=== PATIENT | male | born 1955 | race Caucasian/White ===

== ENCOUNTER 2017-03-10 06:16 | Outpatient (CLI) | payer BC ==
--- NOTE | ~2017-03-10 | HEMODYNAMI ---
PATIENT:KATELYNN BALDWIN MEDICAL RECORD: [id number] : 53 LOCATION:[facility] ADMISSION DATE: 03/10/17 Generatedon:03/10/20179:21 Patient name: KATELYNN BALDWIN Patient #: [id number] SSN: D OB: 1955 Date of study: 03/10/2017 Page: Of Hemodynamic Procedure Report Patient Data Patient Demographics Procedure consent was obtained First Name: KATELYNN Gender: Male Last Name: DENNY : 1955 Patient #: [id number] Age: 61 year(s) Race: Unknown Additional ID: [id number] Contact details Address: [address] [place] [address] State: [place] City: [facility] Zip code: [address] Admission Admission Data Admission Date: 03/10/2017 Admission Time: 6:16 Lab Results Lab Result Date: 03/10/2017 Lab Result Time: 0:00 Biochemistry Name Units Result Min Max BUN mg/dl 21 --(----)-* 7 18 Creatinine mg/dl 1.2 --(---*)-- 0.6 1.3 CBC Name Units Result Min Max Hemoglobin g/dl 15.6 --(--*-)-- 13.5 17.5 Procedure Procedure Types Cath Procedure Diagnostic Procedure [facility] w/Coronaries Miscellaneous Procedures Moderate Sedation up to 30 minutes Procedure Description Procedure Date Procedure Date: 03/10/2017 Procedure Start Time: 9:06 Procedure End Time: 9:18 Procedure Staff Name Function Dima Arias MD Performing Physician Phylicia Ortez RT Scrub Eric Bright RN Nurse Miguelina Hawley RT Monitor Procedure Data Cath Procedure Fluoroscopy Diagnostic fluoroscopy Total fluoroscopy Time: 1.6 time: 1.6 min min Diagnostic fluoroscopy Total fluoroscopy dose: 988 dose: 988 mGy mGy Contrast Material Contrast Material Type Amount (ml) Isovue 300 77 Entry Location Entry Primary Successful Side Size Upsize Upsize Entry Closure Christianson ccessful Closure Location (Fr) 1 (Fr) 2 (Fr) Remarks Device Remarks Radial Right 6 Fr Mechanical artery Short Compression Estimated blood loss: 5 ml Diagnostic catheters Device Type Used For End Catheter Placement Terumo 5Fr Roque 110cm Multi-vessel catheter Angiography Procedure Complications No complications Procedure Medications Medication Administration Route Dosage Oxygen NC 2 l/min Heparin Flush Bag added to field 2 bags (1000units/500ml NS) 0.9% NaCl I.V. 100 ml/hr Radial Cocktail added to field 1 syringe (Verapomil 2mg/Nitro 400mcg/Heparin 1500units) Fentanyl I.V. 50 mcg Versed I.V. 1 mg Radial Cocktail I.A. 1 syringe (Verapomil 2mg/Nitro 400mcg/Heparin 1500units) Fentanyl I.V. 50 mcg Versed I.V. 1 mg Hemodynamics Rest HGB: 15.6 (g/dl) Heart Rate: 74 (bpm) Pressure Samples Time Site Value (mmHg) Purpose Heart Use Rate(bpm) 9:09 LV 121/-7,6 Snapshot 77 Gradients Valve Time Site Site Mean SEP/DFP Peak To Heart Use 1 2 (mmHg) (sec/min) Peak Rate (mmHg) (bpm) Aortic 9:10 LV AO 84 Snapshots Pre Cath Intra NCS Post Cath Vital Signs Time Heart Resp SPO2 etCO2 NIBP (mmHg) Rhythm Pain Sedation Rate (ipm) (%) (mmHg) Status Level (bpm) 8:45:26 57 18 94 0 141/79(112) NSR 0 (11) 10(A) , No pain 8:49:48 58 28 96 29 138/72(98) NSR 0 (11) 10(A) , No pain 8:54:02 65 18 96 35 129/85(108) NSR 0 (11) 10(A) , No pain 8:58:16 68 16 97 34.3 124/87(107) NSR 0 (11) 10(A) , No pain 9:02:30 75 17 92 33.6 141/83(109) NSR 0 (11) 9(A) , No pain 9:06:50 71 17 92 14.1 127/79(106) NSR 0 (11) 9(A) , No pain 9:10:58 68 17 93 38.8 113/69(103) NSR 0 (11) 9(A) , No pain 9:15:10 74 16 92 38.8 122/77(97) NSR 0 (11) 9(A) , No pain 9:21:02 70 18 93 27.6 133/75(98) NSR 0 (11) 9(A) , No pain Medications Time Medication Route Dose Verified Delivered Reason Notes E ffectiveness by by 8:52:39 Oxygen NC 2 l/min Dima Eric Per Hugo Bright RN physician 8:52:48 Heparin Flush added 2 bags Dima Eric used for Bag to Hugo Bright RN procedure (1000units/500ml field NS) 8:52:57 0.9% NaCl I.V. 100 Dima Eric Per ml/hr Hugo Bright RN physician 8:53:07 Radial Cocktail added 1 Dima Eric used for (Verapomil to syringe Hugo Bright RN procedure 2mg/Nitro field 400mcg/Heparin 1500units) 9:00:58 Fentanyl I.V. 50 mcg Dima Eric for sedation Hugo Bright RN 9:01:06 Versed I.V. 1 mg Dima Eric for sedation Hugo Bright RN 9:09:05 Radial Cocktail I.A. 1 Dima Dima for (Verapomil syringe Hugo Arias MD vasodilation 2mg/Nitro 400mcg/Heparin 1500units) 9:09:36 Fentanyl I.V. 50 mcg Dima Eric for sedation Hugo Bright RN 9:09:38 Versed I.V. 1 mg Dima Eric for sedation Hugo Bright poultry picking machine tender Log Time Note 8:25:16 Plan of Care:Hemodynamics will remain stable., Cardiac rhythm will remain stable., Comfort level will be maintained., Respiratory function will remain adequate., Patient/ family verbilizes understanding of procedure., Procedure tolerated without complication., Recovers from procedure without complications.. 8:25:50 Phylicia Ortez RT(R) sent for patient. Start room use. 8:38:11 Time tracking: Regular hours 8:38:53 Patient received from Pre/Post Procedure Room to [facility] 2 Alert and oriented. Tansferred to table in Supine position. 8:38:54 Warm blankets applied, and shannan hugger turned on for patient comfort. 8:38:55 Correct patient and procedure confirmed by team. 8:38:56 Signed procedure consent form obtained from patient. 8:38:56 ECG and BP/O2 sat monitors applied to patient. 8:44:12 Vital chart was started 8:48:09 Baseline sample Acquired. 8:48:16 Rhythm: sinus rhythm 8:48:17 Full Disclosure recording started 8:48:29 H&P Date Dictated: 03/04/2017 Within 30 days and on chart., H&P Addendum completed by physician on day of procedure. (MUST COMPLETE FOR ALL OUTPATIENTS). 8:48:33 Pre-procedure instructions explained to patient. 8:48:33 Pre-op teaching completed and patient verbalized understanding. 8:48:34 Family in waiting room. 8:48:35 Patient NPO since Midnight. 8:48:45 Is the patient allergic to Iodine/contrast media? No. 8:48:46 Was the patient premedicated? No 8:48:47 Is patient on blood thinner?No 8:48:48 Patient diabetic? No. 8:48:51 Previous problem with sedation/anesthesia? No ? 8:48:54 Snore? Yes 8:48:55 Sleep apnea? Yes 8:48:56 Deviated septum? No 8:48:57 Opens mouth fully? Yes 8:48:57 Sticks out tongue? Yes 8:48:59 Airway obstruction? No ? 8:49:02 Dentures? No ? 8:50:00 Pre procedure: right dorsailis pedis pulse 2+ Normal; easily identifiable; not easily obliterated 8:50:03 Pre procedure: left dorsailis pedis pulse 2+ Normal; easily identifiable; not easily obliterated 8:50:06 Patient pain scale 0/10 ?. 8:50:15 IV patent on arrival in left forearm with 0.9% NaCl at [facility]. 8:52:04 Lab Result : Creatinine 1.2 mg/dl 8:52:04 Lab Result : BUN 21 mg/dl 8:52:04 Lab Result : Hemoglobin 15.6 g/dl 8:52:07 Lab results completed and on chart. 8:52:15 Right Radial & Right Groin area was prepped with chlora-prep and draped in sterile fashion 8:52:15 Alarms reviewed by RGabe NGabe 8:52:16 Sharps counted by scrub and verified by R.N. 8:52:39 Oxygen 2 l/min NC was administered by Eric Bright RN; Per physician; 8:52:48 Heparin Flush Bag (1000units/500ml NS) 2 bags added to field was administered by Eric Bright RN; used for procedure; 8:52:57 0.9% NaCl 100 ml/hr I.V. was administered by Eric Bright RN; Per physician; 8:53:07 Radial Cocktail (Verapomil 2mg/Nitro 400mcg/Heparin 1500units) 1 syringe added to field was administered by Eric Bright RN; used for procedure; 8:58:37 Physician arrived 8:58:38 --------ALL STOP TIME OUT------ 8:58:39 Final Timeout: patient, procedure, and site verified with staff and physician. All members of the team are in agreement. 8:58:53 Right Radial & Right Groin site verified by team. 8:58:55 Physical assessment completed. ASA score P 2 - A patient with mild systemic disease as per Dima Arias MD. 8:58:59 Sedation plan: IV Moderate Sedation Versed, Fentanyl 8:59:01 Zero performed for pressure channel P1 8:59:07 Zero performed for pressure channel P1 8:59:25 Use device set Radial Dx 8:59:26 Acist Syringe opened to sterile field. 8:59:26 Medline Cath Pack opened to sterile field. 8:59:27 Bag Decanter opened to sterile field. 8:59:27 Terumo 6Fr Slender Glidesheath opened to sterile field. 8:59:27 St Glenn 260cm J .035 wire opened to sterile field. 8:59:28 Acist Hand Control opened to sterile field. 8:59:28 Acist Manifold opened to sterile field. 8:59:29 Tegaderm 4 x 4 opened to sterile field. 8:59:29 MBrace Wrist Support opened to sterile field. 9:00:58 Fentanyl 50 mcg I.V. was administered by Eric Bright RN; for sedation; 9:01:06 Versed 1 mg I.V. was administered by Eric Bright RN; for sedation; 9:06:41 Procedure started. 9:06:46 Local anesthetic to right radial artery with Lidocaine 2% by Dima Arias MD.INITIAL ACCESS ONLY 9:07:59 A 6 Fr Short sheath was inserted into the Right Radial artery 9:08:58 A Terumo 5Fr Roque 110cm catheter was advanced over the wire and used for Multi-vessel Angiography. 9:09:05 Radial Cocktail (Verapomil 2mg/Nitro 400mcg/Heparin 1500units) 1 syringe I.A. was administered by Dima Arias MD; for vasodilation; 9::36 Fentanyl 50 mcg I.V. was administered by Eric Bright RN; for sedation; 9::38 Versed 1 mg I.V. was administered by Eric Bright RN; for sedation; 9::38 LV hemodynamics recorded. 9:09:39 LV gram done using MORILLO 9:09:41 Injector settings: Ml/sec: 5, Volume: 15, 9:09:53 EF : 50 % 9:10:43 RCA angiography performed. 9:10:46 Injector settings: Ml/sec: 3, Volume: 6, 9:13:20 LCA angiography performed. 9:13:24 Injector settings: Ml/sec: 3, Volume: 6, 9:15:22 Catheter removed. 9:16:02 Terumo TR Band Large opened to sterile field. 9:16:19 Sheath removed intact; hemostasis achieved with Mechanical Compression to the Right Radial artery. 9:16:21 Procedure ended.(Physican Out) 9:16:40 Fluoroscopy time 01.60 minutes. 9:16:44 Flurop Dose total: 988 9:16:44 Fluoroscopy dose: 988 mGy 9:16:51 Contrast amount:Isovue 300 77ml. 9:16:53 Sharps counted by scrub and verified by R.N. 9:16:55 TR band inflated with 10cc of air. 9:16:57 Insertion/operative site no bleeding no hematoma. 9:17:00 Post right radial artery:stable 9:17:36 Post Procedure Pulses reassessed and unchanged 9:17:38 Post procedure rhythm: unchanged. 9:17:41 Estimated blood loss: 5 ml 9:17:42 Post procedure instruction explained to patient.Patient verbalizes understanding. 9:17:43 Patient needs reinforcement of post procedure teaching. 9:18:00 Procedure type changed to Cath procedure, Diagnostic procedure, LHC, LHC w/Coronaries, Miscellaneous Procedures, Moderate Sedation up to 30 minutes 9:18:05 Procedure and supply charges have been captured, reviewed, submitted and are correct. 9:18:10 Procedure Complication : No complications 9:18:12 Vital chart was stopped 9:18:12 See physician's report for complete and final results. 9:18:30 Report given to Pre/Post Procedure Room. 9:18:32 Patient transfered to Pre/Post Procedure Room with Stretcher. 9:18:34 Procedure ended. 9:18:34 Full Disclosure recording stopped 9:18:38 End room use (Document Last) Device Usage Item Name Manufacture Quantity Catalog Hospital Part Current Minimal Lot# / Number Charge Number Stock Stock Serial# Code Acist Acist 1 09810 710051 054048 121508 20 Syringe Medical Systems Inc Medline Cardinal 1 [id number] 030567 69114 823913 5 Cath Pack Health Bag Microtek 1 2002S 211254 28570 315446 5 [employer] Terumo 6Fr Terumo 1 [id number] 302007 389008 922644 [address] Glenn 1 950116 089439 361256 991679 30 260cm J .035 wire Acist Hand Acist 1 98588 985833 908262 581038 5 Control Medical Systems Inc Acist Acist 1 94647 755180 485657 561356 5 Manifold Medical Systems Inc Tegaderm 4 3M 1 1626W 133841 034351 533141 5 x 4 MBrace Advanced 1 140-0250-00 149290 72763 830311 5 Wrist Vascular Support Dynamics Terumo 5Fr Terumo 1 11-4264 560572 515945 764033 5 Roque 110cm catheter Terumo TR Terumo 1 [id number] 815157 960610 235267 40 Band Large Signature Audit [place] Stage Time Signature Unsigned Intra-Procedure 03/10/2017 Miguelina Hawley 9:21:23 AM RT(R) Signatures Monitor : Miguelina Hawley RT Signature : Date : Time : [facility] [address] [place] [address]
[2017-03-10 06:36] LABS: BASOPHILS 0.7 % (0-2); EOSINOPHILS 3.2 % (0-7); HEMATOCRIT 46.2 % (42.0-54.0); HEMOGLOBIN 15.6 g/dL (13.5-17.5); IMMATURE GRANULOCYTES 0.7 % (0-5); LYMPHOCYTES 24.2 % (15-50); MCH 31.8 pg (26.0-34.0); MCHC 33.8 g/dL (31.0-37.0); MCV 94.1 fL (80.0-100.0); MEAN PLATELET VOLUME 10.7 fL (7.4-10.4); MONOCYTES 10.2 % (2-11); PLATELET COUNT 217 10x3/uL (130-400); RBC 4.91 10x6/uL (4.20-6.10); RDW 13.5 % (11.5-14.5); WBC 9.1 10x3/uL (4.8-10.8)
[2017-03-10 06:47] VITALS: BP 150/78; BMI 39.1
[2017-03-10 06:57] LABS: ANION GAP 15.4 mmol/L (8-16); CALCIUM 9.2 mg/dL (8.5-10.1); CARBON DIOXIDE 24.9 mmol/L (21.0-32.0); CREATININE - SERUM 1.2 mg/dL (0.6-1.3); POTASSIUM - SERUM 4.3 mmol/L (3.5-5.1)
[2017-03-10] MEDS ORDERED: ALEVE220 MG PO (07:02)
[2017-03-10] MEDS ORDERED: TRICOR145 MG PO (07:02)
[2017-03-10] MEDS ORDERED: COZAAR100 MG PO (07:02)
[2017-03-10] MEDS ORDERED: MULTIPLE VITAMI1 TA1 PO (07:03)
--- NOTE | 2017-03-10 09:41 | NUR ---
0930 RECEIVED PT FROM BUFFERER. PT IS DROWSY, DENIES ANY C/O CHEST PAIN OR NAUSEA. SINUS RHYTHM WITH PVC'S PER MONITOR. TR BAND TO RIGHT WRIST IS CDI, NO BLEEDING OR HEMATOMA NOTED. FINGERS WARM, CAP REFILL IS BRISK. PO FLUIDS SERVED, CALL LIGHT IN REACH.
--- NOTE | 2017-03-10 09:45 | NUR ---
0952 PT DENIES ANY C/O. NO BLEEDING OR HEMATOMA NOTED AT CATH SITE. CALL LIGHT IN REACH.
--- NOTE | 2017-03-10 10:28 | NUR ---
1000 SANDWICH SERVED. NO BLEEDING OR HEMATOMA NOTED AT CATH SITE. FINGERS WARM, CAP REFILL IS BRISK. DENIES ANY C/O CHEST DISCOMFORT. SINUS RHYTHM WITH PVC'S
--- NOTE | 2017-03-10 10:30 | NUR ---
1030 DR BARNES HAS ROUNDED ON PT. PT HAS NINFA SANDWICH WITH NO C/O NAUSEA. TR BAND IS CDI, NO BLEEDING OR HEMATOMA NOTED. FINGERS WARM, CAP REFILL IS BRISK. MULTIPLE FAMIILY MEMBERS AT BEDSIDE. CALL LIGHT IS IN REACH.
--- NOTE | 2017-03-10 11:13 | NUR ---
1100 4 CC OF AIR REMOVED FROM TR BAND WITH NO BLEEDING OR HEMATOMA NOTED. PT DENIES ANY C/O. VSS. FAMILY AT BEDSIDE, CALL LIGHT IS IN REACH.
--- NOTE | 2017-03-10 11:44 | NUR ---
1130 ALL AIR HAS BEEN REMOVED FROM TR BAND, NO BLEEDING OR HEMATOMA NOTED. FINGERS WARM, PULSES PALPABLE. PT DENIES ANY C/O AT THIS TIME. IV DC'D WITH CATH INTACT.
--- NOTE | 2017-03-10 12:03 | NUR ---
1200 2X2 AND TEGADERM TO CATH SITE IS CDI, NO BLEEDING OR HEMATOMA NOTED. FINGERS WARM, CAP REFILL IS BRISK. PT DENIES ANY C/O. DC INSTRUCTIONS REVIEWED WITH PT AND WHO VERBALIZE UNDERSTANDING. PT VOIDED 700 CC CLEAR YELLOW URINE TO URINAL. PT ESCORTED TO PRIVATE AUTO VIA WC BY NURSE WITH DRIVING HIM HOME.
== END 2017-03-10 12:00 | disposition home or self-care (01) ==
LOC: D.CATH 06:16
PROVIDERS: Internal Medicine Cardiovascular Disease
DX: I25.10 Atherosclerotic heart disease of native coronary artery without angina pectoris (principal); R94.39 Abnormal result of other cardiovascular function study; Z01.812 Encounter for preprocedural laboratory examination

== ENCOUNTER → 2017-03-11 12:12 | Outpatient (CLI) | payer BC ==
[2017-03-10 06:47] VITALS: BMI 39.1
[~2017-03-11 12:12] MED LIST: ALEVE220 MG PO; ASPIRIN81 MG PO; COLACE100 MG PO; CORDARONE200 MG PO; COZAAR100 MG PO; HYDROCODONE-APA1 TAB PO; K-DUR20 MEQ PO; LASIX40 MG PO; MULTIPLE VITAMI1 TA1 PO; SENOKOT-S TABLE1 TAB PO; TRICOR145 MG PO
[2017-03-12 06:12] LABS: HEPATITIS C ANTIBODY <0.1 (0.0-0.9)
== END | disposition home or self-care (01) ==
LOC: D.LAB 12:12 → D.US 14:00
PROVIDERS: Internal Medicine Cardiovascular Disease
DX: Z01.812 Encounter for preprocedural laboratory examination (principal); R01.1 Cardiac murmur, unspecified

== ENCOUNTER 2017-03-18 05:00 | Inpatient (IN) | payer BC ==
--- NOTE | 2017-03-13 13:37 | HP ---
PATIENT: KATELYNN BALDWIN MEDICAL RECORD: [id number] ACCOUNT: [id number] LOCATION:[facility] : 53 ADMISSION DATE: 03/18/17 HISTORY AND PHYSICAL EXAMINATION NameKATELYNN BALDWIN (61yo, M) ID# [id number]. Date/Time03/11/2017 11:01FSFND1955[facility] Dept.NPP_[facility] ClinicProviderEDDIRK ESCOBAR MDInsuranceMed Primary: [place] Insurance # : [id number] Referring Provider Name : EYAD ORTIZ Employer Name : UNKNOWN Prescription: TE2 - This member could not be found in the payer's files. Please verify coverage and all member demographic information. Chief Complaint Followup: Coronary atherosclerosis CAD Dr. Arias Patient's Care Team Referring Provider (): EYAD ORTIZ: [address] [place] [address], , Special Education Tutor: YELENA ARIAS: [address] [place] [address], , Patient's Pharmacies [id number] (ERX): [phone] [facility] [id number], P h , Vitals BP:130/80 sitting R arm 03/11/2017 10:51 amHR:80irreg 03/11/2017 10:52 amHt:6 ft 03/11/2017 10:48 amWt:288 lbs 03/11/2017 10:48 amBMI:39.1 03/11/2017 10:48 amAllergies Reviewed Allergies NKDAMedications Reviewed Medications fenofibrate 140mg daily03/11/17 enteredCindy Brownlosartan 100 mg tablet Take 1 tablet(s) every day by oral route.03/11/17 enteredCindy Browntriamcinolone acetonide 0.1 % topical cream APPLY TO AFFECTED AREA BID02/18/17 filledsurescriptsProblems Reviewed Problems Coronary atherosclerosis - Onset: 03/10/2017 Family History Discussed Family History Father- Malignant neoplastic diseaseMother- Alzheimer's diseaseSocial History Discussed Social History Cardiology Family history of heart disease?: Y Smoking Status: Former smoker High Cholesterol: Y High blood pressure: Y Obese: N Diabetes: N General stress level: Medium Alcohol intake: Occasional Is blood transfusion acceptable in an emergency?: Y Surgical History HISTORY AND PHYSICAL [id number] KATELYNN BALDWIN Reviewed Surgical History Other - vascectomy Other - Right knee replacement Past Medical History Discussed Past Medical History Dizzy Spells: Y Heart Disease: Y High Blood Pressure: Y Hyperlipidemia: Y Pain in legs when walking: Y Shortness of Breath: Y Notes: OGLALA SIOUX wears hearing aids Documents for Discussion N/A Screening None recorded. HPI Coronary Artery Disease F/U Reported by patient. Associated Symptoms: dyspnea with exertion Notes: "wear CPAP at night" occlusive coronary artery disease ROS Patient reports shortness of breath when walking but reports no chest pain, no arm pain on exertion, no shortness of breath when lying down, no palpitations, and no known heart murmur. He reports shortness of breath but reports no cough, no wheezing, and no coughing up blood. He reports no fever, no night sweats, no significant weight gain, no significant weight loss, and no exercise intolerance. He reports no dry eyes, no irritation, and no vision change. He reports no difficulty hearing and no ear pain. He reports no frequent nosebleeds and no nose/sinus problems. He reports no sore throat, no bleeding gums, no snoring, no dry mouth, no mouth ulcers, no oral abnormalities, and no teeth problems. He reports no jugular vein distension and no swollen glands. He report s no abdominal pain, no vomiting, normal appetite, no diarrhea, not vomiting blood, no nausea, and no constipation. He reports no incontinence, no difficulty urinating, no hematuria, and no increased frequency. He reports no muscle aches, no muscle weaknes s , no arthralgias/joint pain, no back pain, and no swelling in the extremities. He reports no abnormal mole, no jaundice, and no rashes. He reports no loss of consciousness, no weakness, no numbness, no seizures, no dizziness, and no headaches. He reports no depression, no sleep disturbances, feeling safe in relationship, and no alcohol abuse. He reports no fatigue. He reports no swollen glands and no bruising. He reports no runny nose, no sinus pressure, no itching, no hives, and no frequent sneezing. ROS as noted in the HPI Physical Exam Patient is a 61-year-old male. Constitutional: General Appearance obese. 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 Coronary atherosclerosis I25.10: Atherosclerotic heart disease of [place] coronary artery without angina pectoris HISTORY AND PHYSICAL [id number] KATELYNN BALDWIN Discussion Notes I have discussed the patient's disease process with them in detail as well as the alternative methods of treatment we discussed coronary artery bypass including the expected benefits and risk which include bleeding, infection, stroke, , and he imponderables. They understand all the above and wishes to proceed with planned surgery NIRU ESCOBAR MD at 1337 CC: [id number] DICTATION DATE: 03/11/17 1100 ELECTRICIAN RADIO: CESAR 03/11/17 1521 PRE IN [facility] [address] [place] [address]
[2017-03-17 09:32] LABS: BASOPHILS 0.5 % (0-2); EOSINOPHILS 2.7 % (0-7); HEMATOCRIT 48.8 % (42.0-54.0); HEMOGLOBIN 16.2 g/dL (13.5-17.5); IMMATURE GRANULOCYTES 0.6 % (0-5); LYMPHOCYTES 22.9 % (15-50); MCH 31.8 pg (26.0-34.0); MCHC 33.2 g/dL (31.0-37.0); MCV 95.7 fL (80.0-100.0); MEAN PLATELET VOLUME 10.6 fL (7.4-10.4); MONOCYTES 10.5 % (2-11); NEUTROPHILS 62.8 % (40-80); PLATELET COUNT 218 10x3/uL (130-400); RDW 13.4 % (11.5-14.5); WBC 8.3 10x3/uL (4.8-10.8)
[2017-03-17 09:53] LABS: APPEARANCE CLEAR (CLEAR); BILIRUBIN NEGATIVE (NEGATIVE); COLOR DK YELLOW (YELLOW); EPITHELIAL CELLS 0-5 /hpf (0-5); GLUCOSE NEGATIVE (NEGATIVE); KETONE NEGATIVE (NEGATIVE); NITRITE NEGATIVE (NEGATIVE); PROTEIN TRACE mg/dL (NEGATIVE); SPECIFIC GRAVITY 1.025 (1.005-1.020); UROBILINOGEN NORMAL (NORMAL)
[2017-03-17 09:54] LABS: AMORPHOUS SEDIMENT <1+ /lpf (NONE SEEN); APTT 30.8 SECONDS (22.8-39.4); BACTERIA FEW /hpf (NONE SEEN); GRANULAR CAST OCC /lpf (NONE SEEN); HYALINE CAST 0-5 /lpf (NONE SEEN); INR 0.98 (0.85-1.17); MUCUS >1+ /lpf (NONE SEEN); PROTIME 12.8 SECONDS (11.6-15.0); RED CELLS - URINE OCC /hpf (0-5); WHITE CELLS - URINE 0-5 /hpf (0-5)
[2017-03-17 09:58] LABS: HEMOGLOBIN A1C 5.8 % (4.8-6.0)
[2017-03-17 10:09] LABS: ALBUMIN 3.9 g/dL (3.4-5.0); ANION GAP 12.4 mmol/L (8-16); BILIRUBIN - TOTAL 0.57 mg/dL (0.2-1.3); CALCIUM 9.8 mg/dL (8.5-10.1); CARBON DIOXIDE 30.6 mmol/L (21.0-32.0); CREATININE - SERUM 1.6 mg/dL (0.6-1.3); PHOSPHOROUS 4.6 mg/dL (2.5-4.9); PROTEIN - SERUM 7.5 g/dL (6.4-8.2); T4 THYROXIN - FREE 0.88 ng/dL (0.76-1.46); THYROID STIMULATING HORMONE 2.78 uIU/mL (0.36-3.74); URIC ACID 5.7 mg/dL (2.6-7.2)
[2017-03-17 13:26] LABS: COLD SCREEN @ 4 DEGREES NEGATIVE (NEGATIVE); COLD SCREEN ROOM TEMP NEGATIVE (NEGATIVE)
[~2017-03-18] VITALS: Ht 182.9 cm; Wt 129.7 kg
[2017-03-18] VITALS (32 sets, daily range): BP systolic 116–136; BP diastolic 56–84; BMI 38.5; BMI 39.7
[~2017-03-18 05:00] MED LIST changes: -ASPIRIN81 MG PO; -COLACE100 MG PO; -CORDARONE200 MG PO; -HYDROCODONE-APA1 TAB PO; -K-DUR20 MEQ PO; -LASIX40 MG PO; -SENOKOT-S TABLE1 TAB PO
[2017-03-18 08:55] LABS: PLT FUNCT.(P2Y12) PLAVIX 254 PRU (194-418)
[2017-03-18 14:19] LABS: CALCIUM 7.9 mg/dL (8.5-10.1); CARBON DIOXIDE 23.5 mmol/L (21.0-32.0); CREATININE - SERUM 1.2 mg/dL (0.6-1.3); POTASSIUM - SERUM 4.5 mmol/L (3.5-5.1)
[2017-03-18 14:29] LABS: HEMATOCRIT 35.2 % (42.0-54.0); HEMOGLOBIN 11.7 g/dL (13.5-17.5); MCH 31.2 pg (26.0-34.0); MCHC 33.2 g/dL (31.0-37.0); MCV 93.9 fL (80.0-100.0); MEAN PLATELET VOLUME 10.7 fL (7.4-10.4); RBC 3.75 10x6/uL (4.20-6.10); WBC 13.7 10x3/uL (4.8-10.8)
[2017-03-18 14:51] LABS: PROTIME 15.2 SECONDS (11.6-15.0)
[2017-03-18 14:56] LABS: INR 1.21 (0.85-1.17)
--- NOTE | 2017-03-18 18:07 | NUR ---
1445-RECIVEVD FROM OR ACCOMPANIED BY OR TEAM-PLACED TO [id number] DDD WITH FREQUENT PAC PJC AND PVC-SLIP SEAT COVERER PLACED-CEREBRAL SVO2 PLACED-SVO2 PLACED-DOPAMINE AT 5MCG-LEVOPHED AT 0.035MCG-NTG GTT INFUSING AT 10ML/H-INSULIIN GTT STARTED AT 2UNITS/H-R RADIAL HERO-MEDIASTINAL CHEST TUBES AND L LATERAL THORACIC-TO 20CM SUCTION-NO AIRLEAK AT THIS TIME 1510-CXR DONE 1530-DR ESCOBAR AT [facility] AND FAMILY BROUGHT TO [facility]-ADDRESSED CHRONIC IRREGULAR BEATS-NOT TREATED-QUESTIONS ANSWERED- 1630-PT AWAKENS EASILY-SEE RT RECORD FOR VENT WEANING 1700-LEVOPHED TITRATED OFF PER PARAMETER 1730-CPAP TRIAL IN PROGRESS
--- NOTE | 2017-03-18 19:10 | NUR ---
ORAL CARE PERFORMED WITH PERIDEX ORDERED
--- NOTE | 2017-03-18 19:15 | NUR ---
RE[PORT RECVD. CARE ASSUMED. INITIAL ASSMNT COMPLETED. SEE FLOWSHEET FOR ALL FINDINGS. EXTUBATED TO 4 LPM NC AT 1850. AWAKE AND AOX4. MAEW. PERRLA. RESP EVEN AND UNLABORED. SHALLOW. LUNGS DIM IN BASES. SPO2 96% SR-ST ON THE MONITOR. FREQ PVCS AND PACS NOTED. PULSES PALP. RIGHT RADIAL A-LINE INTACT WITH GOOD WAVE FORM NOTED. SYS B/P WITHIN PARAMETERS. DOPAMINE GTT IN USE AT 5MCG. RIGHT IJ SWAM LOCKED, PATENT AND SECURES. CARDIAC MONITORING PER VIGILENCE WITHIN PARAMETERS. TEMP PM INTACT AT VVI 60. SENSING ONLY. CHEST TUBES X3 PATENT AND SECURED TO 20 SM SX. MINIMAL DRNG SEEN. ABD SOFT WITH HYPO BS X4. F/C PATENT TO CRITICORE. AFEBRILE. TEDS/SCDS ON PER PROTOCOL. STERNAL AND RIGHT LEG DRESSINGS INTACT. SCIENTIFIC ARTIST MORPHINE IN USE FOR PAIN CONTROL. HOB UP. 1:[address] CONT CURRENT POC.
--- NOTE | 2017-03-18 20:32 | NUR ---
FAMILY AT BEDSIDE FOR VISITATION. UPDATE GIVEN. PT AOX4. VSS. SR ON THE MONITOR WITH OCC PACS NOTED. REPOSITIONED FOR COMFORT. DEMONSTRATES CORRECT USE OF PATIENT SITTER. HOB UP. CONT CURRENT POC.
--- NOTE | 2017-03-18 22:30 | NUR ---
ABGS DRAWN AND RESULTED. K+ LEVEL TREATED. ALL OTHER VALUES WITHIN PARAMETERS. REPORTED TO DR ESCOBAR. NO NEW ORDER.
--- NOTE | 2017-03-18 23:15 | NUR ---
REASSESSMENT COMPLETED. SEE FLOWSHEET FOR ALL FINDINGS. RESTING. AROUSES EASILY. AOX4. TURNED AND REPOSITIONED. RESP EVEN AND UNLABORED. SHALLOW. LUNGS DIM IN BASES. SPO2 96% SR-ST ON THE MONITOR. FREQ PVCS AND PACS NOTED. PULSES PALP. RIGHT RADIAL A-LINE INTACT WITH GOOD WAVE FORM NOTED. SYS B/P WITHIN PARAMETERS. DOPAMINE GTT IN USE AT 5MCG. RIGHT IJ SWAM LOCKED, PATENT AND SECURES. CARDIAC MONITORING PER VIGILENCE WITHIN PARAMETERS. TEMP PM INTACT AT VVI 60. SENSING ONLY. CHEST TUBES X3 PATENT AND SECURED TO 20 SM SX. MINIMAL DRNG SEEN. ABD SOFT WITH HYPO BS X4. F/C PATENT TO CRITICORE. AFEBRILE. TEDS/SCDS ON PER PROTOCOL. STERNAL AND RIGHT LEG DRESSINGS INTACT. MYSQL DATABASE DEVELOPER MORPHINE IN USE FOR PAIN CONTROL. HOB UP. 1:[address] CONT CURRENT POC.
[2017-03-19] VITALS (73 sets, daily range): BP systolic 106–149; BP diastolic 51–72
--- NOTE | 2017-03-19 01:27 | NUR ---
RESTING WITH EYES CLOSED. SIDE LYING. VSS. ST ON THE MONITOR. HOB UP. 1:[address] CONT CURRENT POC.
--- NOTE | 2017-03-19 03:10 | NUR ---
ABGS DRAWN AND RESULTED. K+ LEVEL TREATED PER SLIDING SCALE. ALL OTHER VALUES WITHIN PARAMETERS. CONT POC.
--- NOTE | 2017-03-19 03:15 | NUR ---
REASSESSMENT COMPLETED. SEE FLOWSHEET FOR ALL FINDINGS. RESTING. AROUSES EASILY. AOX4. TURNED AND REPOSITIONED. ON HOME CPAP W 4L O2. RESP EVEN AND UNLABORED. SHALLOW. LUNGS DIM IN BASES. SPO2 96% SR-ST ON THE MONITOR. FREQ PVCS AND PACS NOTED. PULSES PALP. RIGHT RADIAL A-LINE INTACT WITH GOOD WAVE FORM NOTED. SYS B/P WITHIN PARAMETERS. DOPAMINE GTT IN USE AT 5MCG. RIGHT IJ SWAM LOCKED, PATENT AND SECURES. CARDIAC MONITORING PER VIGILENCE WITHIN PARAMETERS. TEMP PM INTACT AT VVI 60. SENSING ONLY. CHEST TUBES X3 PATENT AND SECURED TO 20 SM SX. MINIMAL DRNG SEEN. ABD SOFT WITH HYPO BS X4. F/C PATENT TO CRITICORE. AFEBRILE. TEDS/SCDS ON PER PROTOCOL. STERNAL AND RIGHT LEG DRESSINGS INTACT. SATIN FINISHER MORPHINE IN USE FOR PAIN CONTROL. HOB UP. 1:[address] CONT CURRENT POC.
--- NOTE | 2017-03-19 05:15 | NUR ---
RESTING WITH NO DISTRESS. REPOSITIONED FOR COMFORT AND SKIN INTEGRITY. VSS. ST WITH PVCS ON THE MONITOR. WOODWORK TEACHER MORPHINE IN USE FOR PAIN CONTROL. HOB UP. REMAINS IN 1:1 NURSING CARE. CONT CURRENT POC.
[2017-03-19 06:22] LABS: HEMATOCRIT 41.2 % (42.0-54.0); HEMOGLOBIN 13.7 g/dL (13.5-17.5); MCH 31.3 pg (26.0-34.0); MCHC 33.3 g/dL (31.0-37.0); MCV 94.1 fL (80.0-100.0); MEAN PLATELET VOLUME 10.3 fL (7.4-10.4); RBC 4.38 10x6/uL (4.20-6.10); RDW 13.4 % (11.5-14.5)
[2017-03-19 06:41] LABS: ANION GAP 14.1 mmol/L (8-16); BILIRUBIN - TOTAL 0.53 mg/dL (0.2-1.3); CALCIUM 7.8 mg/dL (8.5-10.1); CARBON DIOXIDE 24.9 mmol/L (21.0-32.0); CREATININE - SERUM 1.3 mg/dL (0.6-1.3); PROTEIN - SERUM 5.7 g/dL (6.4-8.2)
[2017-03-19 06:42] LABS: ALBUMIN 2.9 g/dL (3.4-5.0)
--- NOTE | 2017-03-19 06:50 | NUR ---
RIGHT L;EG DRESSING CHANGED
--- NOTE | 2017-03-19 08:01 | NUR ---
0700-RECIEVED PER FLOW SHEET-RESP RX IN PROGRESS-PT HOME NASAL BIPAP ON AND 4L O2 BLED THROUGH SET UP-O2 SAT 94%-ALERT CALM AND VERBALLY APPROPRIATE-ACTIVE PARTICIPATION IN CARE
--- NOTE | 2017-03-19 12:37 | NUR ---
DR ESCOBAR AT BEDSIDE-DOPAMINE WEANED OFF-NTG STARTED FOR ABP-140 SYS-INSULIN TURNED OFF
--- NOTE | 2017-03-19 12:55 | OP ---
PATIENT NAME: KATELYNN BALDWIN MEDICAL RECORD: [id number] :53 LOCATION:[facility] ADMISSION DATE:03/18/17 SURGEON: FAVIAN ALEXANDER MD DATE OF OPERATION: 03/18/2017 SURGEON: Favian Alexander MD ANESTHESIA: General endotracheal, Dr. Severino. OPERATION PERFORMED: Coronary artery bypass utilizing left internal thoracic to the first diagonal, reverse saphenous vein graft to the obtuse marginal and reverse saphenous vein graft to the posterior descending coronary artery. PREOPERATIVE DIAGNOSIS: Severe occlusive coronary artery disease with angina pectoris. POSTOPERATIVE DIAGNOSIS: Severe occlusive coronary artery disease with angina pectoris. INDICATION FOR OPERATION: Angina pectoris. FINDINGS AT OPERATION: The left anterior descending was atretic and a very small vessel and actually an extension of the posterior descending coronary artery. The proximal LAD between the first diagonal and distal LAD was atretic. The first diagonal; however, was large and an important vessel. The obtuse marginal and posterior descending coronary arteries were large graftable vessels. The left internal thoracic and reverse saphenous vein graft were of good quality and caliber. ESTIMATED BLOOD LOSS: Cell Saver was used. DESCRIPTION OF PROCEDURE: After informed consent, adequate preoperative medication evaluation, the patient was brought to the operating room, placed on the table in the supine position. After induction of general anesthesia and application of appropriate monitoring devices, the chest, neck, abdomen, and both legs were prepped and draped in a sterile field, utilizing Betadine scrub, alcohol, and Betadine solution. A Betadine-impregnated drape was also used. Saphenous vein was harvested from right thigh and prepared for reverse saphenous vein grafting. The leg was closed over drains utilizing 3-0 Vicryl and skin larry. Median sternotomy incision was used and dissection carried down to the fascia. Hemostasis maintained with electrocautery. Sternum was divided. Innominate vein was identified and protected. Left internal thoracic was taken down and prepared for grafting. The patient was given a calculated dose of heparin, cannulated in the standard fashion utilizing 1 aortic, one two-stage cannula in the atrium and inferior vena cava. The patient was placed on cardiopulmonary bypass, cooled to 32 degrees centigrade. A cross clamp was placed just proximal to the aortic cannula and the patient was given cardioplegic solution through the aortic root. The patient was given a cold induction and cold maintenance. The patient was given cold intermittent cardioplegic solution throughout the procedure through the root, through the grafts or a combination of both. The first vessel to be grafted was the posterior descending coronary artery. It was grafted end-to-side utilizing a running 7-0 Prolene suture. Graft was measured back to the aorta and the proximal anastomosis fashioned utilizing running 6-0 Prolene suture. Next, the obtuse marginal was grafted end-to-side utilizing a running 7-0 Prolene suture. OPERATIVE REPORT [id number] KATELYNN BALDWIN Graft was measured back to the aorta and a proximal anastomosis fashioned utilizing running 6-0 Prolene suture. The left internal thoracic was brought to the hole in pericardium, sutured to the large first diagonal, end-to-side utilizing a running 8-0 Prolene suture. Pedicle was attached to epicardium with a 7-0 Prolene suture. A search had been made for the left anterior descending, which was atretic and less than 1 mm in size. The patient was given warm cardioplegic reperfusion and controlled reperfusion. The patient rewarmed to 37 degrees centigrade. Two atrial and 2 ventricular pacing wires were placed on the heart and brought out through the epigastric area. The patient was weaned from cardiopulmonary bypass. After being stable off bypass, he was given a calculated dose of protamine to reverse the heparin. Hemostasis was achieved. A #40 right angle and #36 chest tubes were brought in through the epigastric area and placed in mediastinum. A separate left pleural tube was connected to underwater seal and suction. Chest was again irrigated. Instrument count and sponge count were correct times 2. Chest was closed in layers utilizing a #7 wire on the sternum, #2 Vicryl in linea alba and pectoralis fascia. Subcutaneous tissue was approximated with 3-0 Vicryl and skin approximated with 3-0 subcuticular Vicryl. Sterile dressings were applied. The patient tolerated the procedure well and was transferred to CV ICU in satisfactory condition. TRANSINT:[id number] Voice Confirmation ID: [id number] DOCUMENT ID: [id number] FAVIAN ALEXANDER MD at 1255 CC: [id number] DICTATION DATE: 03/18/171428 GRAVEL SCREENER: 03/18/17 1444 ADM IN [address] [place] [address]
--- NOTE | 2017-03-19 17:20 | NUR ---
1530-DRG CHANGE TO CHEST TUBE SITES DONE AND PACER SITES-WIRES INTACT-PER PROTOCOL COMPLETE AM CARE DONE
--- NOTE | 2017-03-19 17:25 | NUR ---
1630-FRIENDS AT BEDSDIE-NOTED ABP INCREASED-NTG TITRATED TO 20ML/H PER PARAMETER 1700-FSBS CHECKED 178-INSULIN RESTARTED AT 2UNITS/H
--- NOTE | 2017-03-19 18:21 | NUR ---
ORAL CARE PERFORMED WITH PERIDEX ORDERED
--- NOTE | 2017-03-19 19:15 | NUR ---
REPORT RECVD. CARE ASSUMED. INITIAL ASSMNT COMPLETED. SEE FLOWSHEET FOR ALL FINDINGS. AWAKE AND AOX4. MAEW. PERRLA. RESP EVEN AND UNLABORED. SHALLOW. LUNGS DIM IN BASES. SPO2 94% ST ON THE MONITOR. FREQ PVCS AND PACS NOTED. PULSES PALP. RIGHT RADIAL A-LINE INTACT WITH GOOD WAVE FORM NOTED. SYS B/P WITHIN PARAMETERS. NTG GTT TITRATION IN USE. RIGHT IJ SWAM LOCKED, PATENT AND SECURED. CARDIAC MONITORING PER VIGILENCE WITHIN PARAMETERS. TEMP PM INTACT AT VVI 60. SENSING ONLY. CHEST TUBES X3 PATENT AND SECURED TO 20 SM SX. MINIMAL DRNG SEEN. ABD DISTENDED, WITH HYPO BS X4. NAUSEATED. F/C PATENT TO CRITICORE. AFEBRILE. TEDS/SCDS ON PER PROTOCOL. STERNAL AND RIGHT LEG DRESSINGS INTACT. CASH PROCESSOR MORPHINE IN USE FOR PAIN CONTROL. HOB UP. 1:[address] CONT CURRENT POC.
--- NOTE | 2017-03-19 19:45 | NUR ---
ABDOMEN DISTENDED. VERY SCANT BOWEL SOUNDS THRU OUT ALL QUADS. REPORTS NAUSEA. PRN REGLAN GIVEN IVP.
--- NOTE | 2017-03-19 21:10 | NUR ---
HS MEDS GIVEN,. C/O N/V CONTINUE. NO VISITORS. REPOSITIONED FOR COMFORT. HOB UP. REMAINS IN 1:1 NURSE MONITORING. CONT CURRENT POC.
--- NOTE | 2017-03-19 23:15 | NUR ---
REASSESSMENT COMPLETED. SEE FLOWSHEET FOR ALL FINDINGS. RESTING WITH NO DISTRESS. REMAINS AOX4. PERRLA SEEN. RESP EVEN AND UNLABORED. SHALLOW. LUNGS DIM IN BASES. SPO2 94% ST ON THE MONITOR. FREQ PVCS AND PACS NOTED. PULSES PALP. RIGHT RADIAL A-LINE INTACT WITH GOOD WAVE FORM NOTED. SYS B/P WITHIN PARAMETERS. NTG GTT TITRATION IN USE. RIGHT IJ SWAM LOCKED, PATENT AND SECURED. CARDIAC MONITORING PER VIGILENCE WITHIN PARAMETERS. TEMP PM INTACT AT VVI 60. SENSING ONLY. CHEST TUBES X3 PATENT AND SECURED TO 20 SM SX. MINIMAL DRNG SEEN. ABD DISTENDED, WITH HYPO BS X4. NAUSEATED. F/C PATENT TO CRITICORE. AFEBRILE. TEDS/SCDS ON PER PROTOCOL. STERNAL AND RIGHT LEG DRESSINGS INTACT. CUPOLA MECHANIC MORPHINE IN USE FOR PAIN CONTROL. HOB UP. 1:[address] CONT CURRENT POC.
[2017-03-20] VITALS (74 sets, daily range): BP systolic 118–171; BP diastolic 50–104
--- NOTE | 2017-03-20 01:20 | NUR ---
TURNED AND RE[POSITIONED FOR COMFORT AND SKIN INTEFRITY. VSS. ST ON THE MONITOR. FREQ PVCS. SYS B/P WITHIN PARAMETERS. HOB UP. CONT CURRENT POC.
--- NOTE | 2017-03-20 02:20 | NUR ---
PRN REGLAN GIVEN FOR C/O NAUSEA. ABD DISTENDED. REPORTS PASSING FLATUS. VSS. CONT CURRENT POC.
--- NOTE | 2017-03-20 03:15 | NUR ---
REASSESSMENT COMPLETED. SEE FLOWSHEET FOR ALL FINDINGS. RESTING WITH NO DISTRESS. REMAINS AOX4. PERRLA SEEN. RESP EVEN AND UNLABORED. SHALLOW. LUNGS DIM IN BASES. SPO2 94% ST ON THE MONITOR. FREQ PVCS AND PACS NOTED. PULSES PALP. RIGHT RADIAL A-LINE INTACT WITH GOOD WAVE FORM NOTED. SYS B/P WITHIN PARAMETERS. NTG GTT TITRATION IN USE. RIGHT IJ SWAM LOCKED, PATENT AND SECURED. CARDIAC MONITORING PER VIGILENCE WITHIN PARAMETERS. TEMP PM INTACT AT VVI 60. SENSING ONLY. CHEST TUBES X3 PATENT AND SECURED TO 20 SM SX. MINIMAL DRNG SEEN. ABD DISTENDED, WITH HYPO BS X4. NAUSEATED. F/C PATENT TO CRITICORE. AFEBRILE. TEDS/SCDS ON PER PROTOCOL. STERNAL AND RIGHT LEG DRESSINGS INTACT. STRUCTURAL TECHNICIAN MORPHINE IN USE FOR PAIN CONTROL. HOB UP. 1:[address] CONT CURRENT POC.
--- NOTE | 2017-03-20 05:20 | NUR ---
REPOSITIONED. INCREASED ECTOPY NOTED. AM LABS DRAWN. DENIES DISCOMFORT. VSS. HOB UP. CONT CURRENT POC.
[2017-03-20 05:54] LABS: HEMATOCRIT 34.2 % (42.0-54.0); HEMOGLOBIN 11.2 g/dL (13.5-17.5); MCH 31.3 pg (26.0-34.0); MCHC 32.7 g/dL (31.0-37.0); MCV 95.5 fL (80.0-100.0); MEAN PLATELET VOLUME 10.6 fL (7.4-10.4); RBC 3.58 10x6/uL (4.20-6.10); RDW 13.3 % (11.5-14.5)
[2017-03-20 06:01] LABS: WBC 15.2 10x3/uL (4.8-10.8)
[2017-03-20 06:08] LABS: ALBUMIN 2.4 g/dL (3.4-5.0); ANION GAP 10.1 mmol/L (8-16); BILIRUBIN - TOTAL 0.44 mg/dL (0.2-1.3); CALCIUM 7.9 mg/dL (8.5-10.1); CARBON DIOXIDE 30.1 mmol/L (21.0-32.0); CREATININE - SERUM 1.3 mg/dL (0.6-1.3); POTASSIUM - SERUM 4.2 mmol/L (3.5-5.1); PROTEIN - SERUM 5.5 g/dL (6.4-8.2)
--- NOTE | 2017-03-20 18:44 | NUR ---
ORAL CARE PERFORMED WITH PERIDEX ORDERED
--- NOTE | 2017-03-20 19:03 | NUR ---
0715-RECIEVED PER FLOW SHEET-NTG TITRATED TO 20ML/H-PER PARAMETER-CHEST TUBES TO 20CM SUCTION-SCANT SANG AND NO NOTED AIR LEAK AWAKE AND ALERT-USING MORPHINE AUTOMOTIVE GENERATOR REPAIRER 0830-COMPLETED IS [id number] COUGH 1030-INSENTIVE [id number] X10 1245-DR ESCOBAR AT BEDSIDE-PT PREPED FOR CHEST TUBE REMOVAL DIRECTED 1330-VERSED 2MG IVP GIVEN BY DR ESCOBAR-SWANGANZ D/C'D BY SAME-CHEST TUBESX3 REMOVED BY DR ESCOBAR PER PROTOCOL-PT ABLE TO ANSWER QUESTIONS -O2SAT 92%-Indira FERRARI X2 D/C'D PER PROTOCOL-TIPS INTACT-R JUGULAR CORDIS REMOVED PER PROTOCOL-TIP INTACT-HEMOSTASIS OBTAINED-ALL SUTURES REMOVED R RADIAL HERO D/C'D PER PROTOCOL-HEMOSTASIS OBTAINED--BAILEY CATH D/C'D WITH TIP INTACT 1500-UP TO CHAIR WITH PHYSICAL THERAPY 1700-ASSISTED BACK TO BED TOLERATED WELL 1825-DR ESCOBAR NOTIFIED OF RHYTHM CHANGE-DIRECTION GIVEN-PACER CHANGED TO DDD 100/10/10 VENTRICULAR SENSITIVTY 0.8-NOTED HR INCREASED TO 98-PACED 100%
--- NOTE | 2017-03-20 19:30 | NUR ---
REPORT RECVD. CARE ASSUMED. INITIAL ASSMNT COMPLETED. SEE FLOWSHEET FOR ALL FINDINGS. AWAKE AND AOX4. MAEW. PERRLA. RESP EVEN AND UNLABORED. SHALLOW. LUNGS DIM IN BASES. SPO2 94% ST ON THE MONITOR. FREQ PVCS WITH PACED BEATS A AND V. TEMP PM INTACT AT DDD 100. AV PACING AND SENSING. SYS B/P WITHIN PARAMETERS. ABD DISTENDED, WITH HYPO BS X4. NAUSEATED. F/C PATENT TO CRITICORE. AFEBRILE. TEDS/SCDS ON PER PROTOCOL. STERNAL AND RIGHT LEG DRESSINGS INTACT. DINING HOST MORPHINE IN USE FOR PAIN CONTROL. BLADDER NON PALP. NO URGE TO VOID AT THIS TIME. HOB UP. REPOSITIONS SELF FOR COMFORT. C/L IN REACH. CONT CURRENT POC.
--- NOTE | 2017-03-20 21:30 | NUR ---
HS MEDS GIVEN. ASSISTED TO USE URINAL TO VOID. VSS. SYS B/P WITHIN PARAMETERS. AV PACED WITH OCC PVCS SEEN. ST AT TIMES. QUALITY CONTROL LAB TECH MORPHINE PROVIDING PAIN CONTROL. INCENTIVE DONE WITH GOOD EFFORT. HOB UP. C/L IN REACH. CONT CURRENT POC.
--- NOTE | 2017-03-20 23:30 | NUR ---
REASSESSMENT COMPLETED. SEE FLOWSHEET FOR ALL FINDINGS. RESTING WITH NO DISTRESS. RESP EVEN AND UNLABORED. SHALLOW. LUNGS DIM IN BASES. SPO2 94% ST ON THE MONITOR. FREQ PVCS WITH PACED BEATS A AND V. TEMP PM INTACT AT DDD 100. AV PACING AND SENSING. SYS B/P WITHIN PARAMETERS. ABD DISTENDED, WITH HYPO BS X4. NAUSEATED. F/C PATENT TO CRITICORE. AFEBRILE. TEDS/SCDS ON PER PROTOCOL. STERNAL AND RIGHT LEG DRESSINGS INTACT. LOCKSTITCH SLEEVE MAKER MORPHINE IN USE FOR PAIN CONTROL. BLADDER NON PALP. VOIDS TO URINAL. HOB UP. REPOSITIONS SELF FOR COMFORT. C/L IN REACH. CONT CURRENT POC.
[2017-03-21] VITALS (25 sets, daily range): BP systolic 118–154; BP diastolic 73–95; Ht 182.9 cm; Wt 129.7 kg
--- NOTE | 2017-03-21 01:20 | NUR ---
RESTING WITH NO DISTRESS. VSS. DENIES NEEDS. CONT POC.
--- NOTE | 2017-03-21 03:30 | NUR ---
REASSESSMENT COMPLETED. SEE FLOWSHEET FOR ALL FINDINGS. RESTING WITH NO DISTRESS. RESP EVEN AND UNLABORED. SHALLOW. LUNGS DIM IN BASES. SPO2 94% ST ON THE MONITOR. FREQ PVCS WITH PACED BEATS A AND V. TEMP PM INTACT AT DDD 100. AV PACING AND SENSING. SYS B/P WITHIN PARAMETERS. ABD DISTENDED, WITH HYPO BS X4. NAUSEATED. F/C PATENT TO CRITICORE. AFEBRILE. TEDS/SCDS ON PER PROTOCOL. STERNAL AND RIGHT LEG DRESSINGS INTACT. INTELLIGENCE OPERATIONS MORPHINE IN USE FOR PAIN CONTROL. BLADDER NON PALP. VOIDS TO URINAL. HOB UP. REPOSITIONS SELF FOR COMFORT. C/L IN REACH. CONT CURRENT POC.
--- NOTE | 2017-03-21 04:51 | NUR ---
returned from xray
--- NOTE | 2017-03-21 05:30 | NUR ---
MOVED PT TO ROOM CV03 IN CHAIR. PLACED ON MONITOPRS. REMAINS AV PACED WITH PVCS. SYS B/P WITHIN PARAMETERS. APARTMENT LEASING AGENT MORPHINE IN USE. UP IN CHAIR AT BEDSIDE. C/L AND PO FLUIDS IN REACH. CONT CURRENT POC.
[2017-03-21 05:52] LABS: HEMATOCRIT 36.2 % (42.0-54.0); HEMOGLOBIN 11.8 g/dL (13.5-17.5); MCH 31.2 pg (26.0-34.0); MCHC 32.6 g/dL (31.0-37.0); MCV 95.8 fL (80.0-100.0); MEAN PLATELET VOLUME 10.8 fL (7.4-10.4); RBC 3.78 10x6/uL (4.20-6.10); RDW 13.2 % (11.5-14.5); WBC 14.8 10x3/uL (4.8-10.8)
[2017-03-21 06:10] LABS: ALBUMIN 2.7 g/dL (3.4-5.0); ANION GAP 9.3 mmol/L (8-16); BILIRUBIN - TOTAL 0.61 mg/dL (0.2-1.3); CALCIUM 8.6 mg/dL (8.5-10.1); CARBON DIOXIDE 31.9 mmol/L (21.0-32.0); CREATININE - SERUM 1.2 mg/dL (0.6-1.3); POTASSIUM - SERUM 4.2 mmol/L (3.5-5.1); PROTEIN - SERUM 6.5 g/dL (6.4-8.2)
--- NOTE | 2017-03-21 07:35 | NUR ---
ORAL CARE DONE WITH PERIDEX
--- NOTE | 2017-03-21 09:45 | NUR ---
PT UP TO RESTROOM. HAD LARGE LIQUID BM AND PASSED GAS. ASSISTED BACK TO CHAIR.
--- NOTE | 2017-03-21 10:38 | NUR ---
* Is the patient Alert and Oriented? Yes 0 * How many steps to enter\exit or inside your home? 0 0 * PCP Dr. Dacosta in [place] 0 * Pharmacy [facility] on [address] 0 * Preadmission Environment Home with Family 0 * ADLs Independent 0 * Equipment CPAP 0 * List name and contact numbers for known caregivers / representatives who currently or will assist patient after discharge: Spouse - Rosalva [phone] 0 * Additional services required to return to the preadmission environment? No 0 * Can the patient safely return to the preadmission environment? Yes 0 * Has this patient been hospitalized within the prior 30 days at any hospital? No Patient Name: KATELYNN BALDWIN Admission Status: Elective Accout number: [id number] Admission Date: 03-18-2017 : 1955 Admission Diagnosis: Attending: NIRU ESCOBAR Current LOS: 3 Anticipated DC Date: 03-25-2017 Planned Disposition: Home Primary Insurance: [employer] Discharge Planning Comments: Patient sleeping. CM met with spouse at bedside to assess dc plans/needs. She reports patient was fully independent with all ADL's & IADL's. He does use a home CPAP at . He has not had home health services in the past. At dc, he will return home with his . No DC needs identified or verbalized at this time. CM will follow. Supervisor Quality Control: Amarilis Roberts
--- NOTE | 2017-03-21 13:30 | NUR ---
PT AMBULATED APPROX 250FT WITH PHYSICAL THERAPY. TOLERATED WELL. ASSISTED BACK TO CHAIR.
--- NOTE | 2017-03-21 18:44 | NUR ---
ORAL CARE PERFORMED WITH PERIDEX ORDERED
--- NOTE | 2017-03-21 18:45 | NUR ---
ATTEMPTED TO PLACE NGT 16FR AND 18FR. UNABLE TO PLACE DUE TO KINKING UP ONCE IT WAS ADVANCED TO THE ESOPHAGUS. PT TOLERATED ATTEMPTS. NOTIFIED RODNEY GILLIAM RN TO TRY ONCE SHE WAS FINISHED WITH CHARGE REPORT. NO BLEEDING NOTED FROM NARES.
--- NOTE | 2017-03-21 19:10 | NUR ---
Received patient sitting up in bed with eyes open watching TV, assessment completed per flowsheet. Patient is AO x4, calm and cooperative. Eyes PERRLA @ 4mm with brisk response, sclera is white and clear. NGT R nare to LIWS, 300ml pale pink drainage removed. S1/S2 noted NSR with regular PVC with HR 91. TPM in use with wires secured/intact, settings VVI R-60 VmA-10 S-0.80. Midline incision dressing CDI, no swelling/bleeding noted. Substernal Dressing CDI, no drainage/bleeding noted. Abdomen is distended and firm with bowel sounds hypoactive x4, LLQ tenderness noted. Patient utilizes urinal jug w/o assistance, no difficulties reported. Full ROM all extremities with all pulses palpable, cap refill <3 sec with skin warm/dry to touch. R leg harvest site incision x5 well approximated, no swelling/bleeding noted. R subclavian CVL dressing CDI, Plasmalyte A @ 30ml/hr / Cordarone @ 0.5mg/min / Morphine MANAGER OF MAINTENANCE in use. Patient denies pain or other needs at this time, repositioned for comfort. All VSS and will continue to monitor.
--- NOTE | 2017-03-21 19:30 | NUR ---
HAD PT GARGLE WITH LIDOCAINE JELLY MIXTURE.
--- NOTE | 2017-03-21 20:35 | NUR ---
Accompanied patient off unit to CT, scan performed without difficulty.
--- NOTE | 2017-03-21 21:00 | NUR ---
Patient returned to [facility], assisted to bed and reconnected to monitors. Family at bedside for visitation, all questions answered to satisfaction. HS meds given without difficulty, repostitioned. All VSS and will continue to monitor.
--- NOTE | 2017-03-21 23:10 | NUR ---
Reassessment completed per flowsheet, patient resting in bed with eyes closed. Patient Ao x4, calm and cooperative. Eyes PERRLA @ 4mm with brisk response. S1/S2 noted Pacer with PVC and HR 92 on telemetry, rythmic and regular. Breathing is slightly shallow and unlabored on 6L via NC with O2 sat 94%, lung sounds clear bilateral upper and mid with diminished lower. Abdomen is distended and firm with bowel sounds hypoactive x4, tenderness noted LLQ. Midsternal dressing CDI, no bleeding/drainage noted. Substernal dressing CDI, no bleeding/drainage noted. TPM in use with setting unchanged from previous assessment, wires secured intact. Upper pulses bounding with lower pulses weak, cap refill < 3 sec with skin warm/dry to touch. Patient denies pain or other needs at this time, all VSS and will continue to monitor.
[2017-03-22] VITALS (24 sets, daily range): BP systolic 120–163; BP diastolic 58–94
--- NOTE | 2017-03-22 01:00 | NUR ---
Patient resting in bed with eyes closed, c/o discomfort from NGT. NGT secured and connected to LIWS, slight cloudy drainage noted. Patient NSR with regular PVC on telemetry, S1/S2 noted. Breathing is slightly shallow and unlabored on 6L via NC, O2 sat 95%. Denies pain or other needs at this time, all VSS and will continue to monitor.
--- NOTE | 2017-03-22 03:10 | NUR ---
Reassessment completed per flowsheet, patient resting in bed with eyes closed snoring. Patient Ao x4, calm and cooperative. C/O discomfort from NGT, states it "feels like I have a lump in my throat I can't swallow". Administered Chloraseptic spray, patient states some relief. S1/S2 with regular PVC and HR 88 noted on telemetry, rhythmic and regular. Breathing is shallow and unlabored on 6L via NC with O2 sat 93%, clear bilateral upper and mid with diminished lower. Abdomen is distended and firm with bowel sounds hypoactive x4, tenderness noted LLQ. Patient states some relief after NGT decompression, scant white mucoid drainage. R leg incision x5 dressing CDI, no bleeding/swelling noted. Patient denies pain or other needs at this time, all VSS and will continue to monitor.
--- NOTE | 2017-03-22 03:45 | NUR ---
Accompanied patient off unit to radiology, exam performed without difficulty.
--- NOTE | 2017-03-22 04:10 | NUR ---
Patient returned to [facility], assisted to chair at bedside. Reconnected to monitors, no further needs at this time.
--- NOTE | 2017-03-22 05:00 | NUR ---
Midsternal/Substernal dressing changed, incision looks well approximated with no bleeding/drainage. R leg dressing changed, incisions are well approximated with no bleeding/drainage noted. Patient tolerated well, no further needs at this time. All VSS and will continue to monitor.
--- NOTE | 2017-03-22 06:05 | NUR ---
AM labs collected without difficulty, patient sitting up in chair at bedside watching TV. Full Bed bath/linen change performed, patient denies other needs at this time. All VSS and will continue to monitor.
[2017-03-22 06:30] LABS: HEMATOCRIT 34.4 % (42.0-54.0); HEMOGLOBIN 11.2 g/dL (13.5-17.5); MCH 30.9 pg (26.0-34.0); MCHC 32.6 g/dL (31.0-37.0); MEAN PLATELET VOLUME 11.2 fL (7.4-10.4); RBC 3.62 10x6/uL (4.20-6.10); RDW 13.2 % (11.5-14.5)
[2017-03-22 06:32] LABS: WBC 9.1 10x3/uL (4.8-10.8)
--- NOTE | 2017-03-22 06:52 | NUR ---
ORAL CARE DONE WITH PERIDEX
[2017-03-22 07:01] LABS: ALBUMIN 2.4 g/dL (3.4-5.0); ALKALINE PHOSPHATASE 68 U/L (46-116); ALT (SGPT) 36 U/L (10-68); BILIRUBIN - TOTAL 1.27 mg/dL (0.2-1.3); CALC OSMOLALITY 284 mosm/kg (275-300); CALCIUM 8.1 mg/dL (8.5-10.1); CARBON DIOXIDE 29.1 mmol/L (21.0-32.0); CHLORIDE - SERUM 102 mmol/L (98-107); GLUCOSE 126 mg/dL (74-106); POTASSIUM - SERUM 4.2 mmol/L (3.5-5.1); PROTEIN - SERUM 6.3 g/dL (6.4-8.2); SODIUM 139 mmol/L (136-145); UREA NITROGEN 26 mg/dL (7-18); eGFR NON AFRICAN AMERICAN 80 mL/min (90-120)
--- NOTE | 2017-03-22 08:23 | NUR ---
DR. BARNES IN PATIENT ROOM WITH DR. ESCOBAR.
--- NOTE | 2017-03-22 09:28 | NUR ---
PHYSICAL THERAPY WALKED PATIENT IN HALLWAY, PATIENT TOLERATED WELL. NGT RECONNECTED TO [facility].
--- NOTE | 2017-03-22 10:13 | NUR ---
LASHA ESCOBAR'S NURSE DIANA OLIVAS ABOUT PO MEDS, WILL HOLD MEDS UNTIL FURTHER INSTRUCTIONS.
--- NOTE | 2017-03-22 11:15 | NUR ---
NOTIFIED DR. MARADIAGA OF CONSULT FOR PATIENT.
--- NOTE | 2017-03-22 14:40 | NUR ---
PATIENT UP TO BATHROOM PASSED GAS AND SMALL AMOUNT OF LIQUID BROWNISH STOOL.
--- NOTE | 2017-03-22 15:10 | NUR ---
CM IS SR WITH INFREQUENT PVC'S NOTED 1ST DEGREE AVB AND BBB NOTED.
--- NOTE | 2017-03-22 17:15 | NUR ---
PATIENT UP TO BATHROOM FOR BM WAS INCONTINENT ON FLOOR PATIENT HAD ABOUT 500MLS OF BROWNISH LIQUID STOOL. PATIENT CLEANED WITH CHLORAHEXADINE WIPES. DRESSING REMOVED FROM LEGS DUE TO STOOL SATURATION. LEGS CLEANED WELL AND BETADINE SWABBED.
--- NOTE | 2017-03-22 17:30 | NUR ---
DR. ESCOBAR AT BEDSIDE TO LOOK AT PATIENTS RHYTHM. NO NEW ORDERS AT THIS TIME.
--- NOTE | 2017-03-22 18:51 | NUR ---
ORAL CARE WITH PERIDEX PROVIDED
--- NOTE | 2017-03-22 19:00 | NUR ---
replaced monika hose and socks due to accidental bm. harvest incisions cleaned by Eva - day shift rn. pt is post op cabg by dr carmichael. midline and substernal drsgs in place. cdi. tpm in place. vvi rate of 60 vma of 10 at this time. battery to be changed in am. pt alert and oriented. at this time. amiodarone drip running at 5ml (0.5 mg)/ hr and plasmalyte running at 30. will monitor throughout shift.
--- NOTE | 2017-03-22 21:00 | NUR ---
2100 MEDS GIVEN AND MORPHINE SANDING MACHINE TENDER REPLACED. FSBS 127. NO INSULINE GIVEN AT THIS TIMEP ER SLIDING SCALE. WILL CONTINUE TO MONITOR
--- NOTE | 2017-03-22 23:00 | NUR ---
REASSESSMENT COMPLETED SEE FLOWSHEET FOR FULL DETAILS. PT HAS 1ST DEGREE BLOCK PRESENT. NO OTHER CHANGES AT THIS TIME. WILL CONTINUE TO MONITOR
[2017-03-23] VITALS (23 sets, daily range): BP systolic 112–162; BP diastolic 56–104
--- NOTE | 2017-03-23 01:00 | NUR ---
NO CHANGES IN PT STATUS AT THIS TIME. WILL CONTINUE TO MONITOR. PT RESING IN BED COMFORTABLY BEDSIDE RAILS UP X 3 CALL LIGHT IN REACH.
--- NOTE | 2017-03-23 03:00 | NUR ---
REASSESSMENT COMPLETED. PT HR ELEVATED EKG OBTAINED. AM LAB DRAWN. PT DENIES CHEST PAIN AND SHORTNESS OF BREATH AT THIS TIME. WILL CONTINUE TO MONITOR.
--- NOTE | 2017-03-23 03:00 | NUR ---
PT B/P AND O2 STABLE AT THIS TIME. WILL NOTIFY MD UPON RECEIPT OF RESULTS.
[2017-03-23 03:45] LABS: HEMATOCRIT 36.1 % (42.0-54.0); HEMOGLOBIN 11.7 g/dL (13.5-17.5); MCH 31.1 pg (26.0-34.0); MCHC 32.4 g/dL (31.0-37.0); MEAN PLATELET VOLUME 10.6 fL (7.4-10.4); RBC 3.76 10x6/uL (4.20-6.10); RDW 13.3 % (11.5-14.5); WBC 10.6 10x3/uL (4.8-10.8)
[2017-03-23 03:56] LABS: ALBUMIN 2.3 g/dL (3.4-5.0); ANION GAP 11.7 mmol/L (8-16); CALCIUM 8.2 mg/dL (8.5-10.1); CARBON DIOXIDE 30.9 mmol/L (21.0-32.0); CREATININE - SERUM 1.2 mg/dL (0.6-1.3); POTASSIUM - SERUM 3.6 mmol/L (3.5-5.1); PROTEIN - SERUM 6.2 g/dL (6.4-8.2)
--- NOTE | 2017-03-23 05:00 | NUR ---
SPOKE WITH DR ESCOBAR NEW ORDERS RECEIVED. WILL CONTINUE TO MONITOR
--- NOTE | 2017-03-23 07:15 | NUR ---
PT ALERT AND ORIENTED, ON 5L O2 NC, NGT TO LIS, WHITE/CLEAR OUTPUT, L SUBLCAVIAN CVL CDI, MORPHINE MANAGER COMMUNICATION AND PLASMALYTE AT 30ML/HR INFUSING, PACEMAKER SET TO VVI 60, ALL DRESSINGS CDI, VSS, DENIES PAIN, SEE SHIFT ASSESSMENT
--- NOTE | 2017-03-23 09:29 | NUR ---
PT UP WALKING WITH PT, WHEN BACK IN CHAIR BP SYSTOLIC 200, WHEN RECHECKED BP DROPPING DOWN TO 175/88, JOSÉ LUIS LEWIS IN UNIT AND MADE AWARE, REMOVED NGT AFTER SPEAKING TO DR CONNOR WILL START CLEAR LIQUID DIET
--- NOTE | 2017-03-23 09:49 | NUR ---
Nutrition Follow Up: Chart reviewed. NGT has been d/c and diet has been advanced to clear liquid. Wt loss noted. +BM 03/23/17. Labs reviewed. Meds noted. Rec continue advancing HOLGER as medically feasible. RD following.
--- NOTE | 2017-03-23 11:21 | NUR ---
PT UP IN CHAIR, VSS, DENIES PAIN, CALL LIGHT WITHIN REACH, SEE REASSESSMENT FLOWSHEET
--- NOTE | 2017-03-23 13:32 | NUR ---
PT WALKED WITH PT, TOLERATED WELL, VSS, BP SLIGHTLY ELEVATED TO 160 FROM 130 SYSTOLIC AFTER PT, TRENDING BACK DOWNWARD, DENIES PAIN AND ALL NEEDS
--- NOTE | 2017-03-23 15:10 | NUR ---
VSS, DENIES PAIN, UP TO BATHROOM, X1 BM, WILL CONTINUE TO MONITOR
--- NOTE | 2017-03-23 17:16 | NUR ---
PT UP IN CHAIR, FEEDS SELF DINNER, VSS, DENIES PAIN, CALL LIGHT WITHIN REACH,
--- NOTE | 2017-03-23 19:00 | NUR ---
REPORT RECEIVED AND ASSESSMENT COMPLETED. PT IS CURRENTLY IN ATRIAL FLUTTER. PT IS ASYMPTOMATIC AT THIS TIME. WILL MONITOR FOR COMPLICATIONS THROUGHOUT SHIFT. SEE FLOWSHEET FOR FULL ASSESSMENT DETAILS.
--- NOTE | 2017-03-23 19:25 | NUR ---
ORAL CARE WITH PERIDEX PROVIDED
--- NOTE | 2017-03-23 21:00 | NUR ---
2100 MEDS GIVEN. FSBS 115. NO INSULIN REQUIRED BY SLIDING SCALE AT THIS TIME. WILL CONTINUE TO MONITOR
--- NOTE | 2017-03-23 21:48 | NUR ---
PT ASSISTED TO BATHROOM. ONE LIQUID BM OUT.
--- NOTE | 2017-03-23 23:00 | NUR ---
REASSESSMENT COMPLETED SEE FLOWSHEET FOR FULL DETAILS. NO OTHER CHANGES IN STATUS AT THIS TIME.
[2017-03-24] VITALS (24 sets, daily range): BP systolic 98–156; BP diastolic 62–93
--- NOTE | 2017-03-24 00:51 | NUR ---
NO CHANGES IN PATIENT STATUS AT THIS TIME. PT NOW ON HOME CPAP UNIT FOR SLEEP BROUGHT IN BY . WILL CONTINUE TO MONITOR
--- NOTE | 2017-03-24 03:00 | NUR ---
REASSESSMENT COMPLETED. SEE FLOWSHEET FOR FULL DETAILS. ASSISTED PT TO BATHROOM FOR BM. SINCE LAST NOTE, PT HAD AN INCREASED HR UP TO 150 WITH PVCS. LABS DRAWN POTASSIUM 3.4. TREATED WITH 10 MEQ OF POTASSIUM PER STANDING ORDERS. UPON COMPLETION OF ADMINISTRATION, PT HAS RETURNED BASELINE HR, AND NO PVCS ARE SEEN AT THIS TIME. WILL CONTINUE TO MONITOR CLOSELY.
--- NOTE | 2017-03-24 05:00 | NUR ---
PT INCONTINENT OF URINE DURING PA AND LAT. UNABLE TO MEASURE OUTPUT. PA AND LAT COMPLETED NO OTHER COMPLICATIONS. PT REMAINS SINUS WITH 1ST DEGREE BLOCK. WILL CONTINUE TO MONITOR
[2017-03-24 06:37] LABS: HEMATOCRIT 33.2 % (42.0-54.0); HEMOGLOBIN 10.6 g/dL (13.5-17.5); MCH 30.5 pg (26.0-34.0); MCHC 31.9 g/dL (31.0-37.0); MCV 95.7 fL (80.0-100.0); MEAN PLATELET VOLUME 10.6 fL (7.4-10.4); RBC 3.47 10x6/uL (4.20-6.10); RDW 14.1 % (11.5-14.5); WBC 11.9 10x3/uL (4.8-10.8)
[2017-03-24 07:00] LABS: ALBUMIN 2.1 g/dL (3.4-5.0); ANION GAP 11.8 mmol/L (8-16); BILIRUBIN - TOTAL 1.1 mg/dL (0.2-1.3); CALCIUM 8.4 mg/dL (8.5-10.1); CARBON DIOXIDE 27.6 mmol/L (21.0-32.0); CREATININE - SERUM 1.2 mg/dL (0.6-1.3); POTASSIUM - SERUM 3.4 mmol/L (3.5-5.1); PROTEIN - SERUM 5.4 g/dL (6.4-8.2)
--- NOTE | 2017-03-24 07:15 | NUR ---
PT ALERT AND ORIENTED X4, O2 5L NC, LEFT SUBCLAVIAN CVL CDI, AMIODARONE 0.5MG.MIN, PLASMALYTE 30ML/HR, MORPHINE 1MG TRACTOR DRILL OPERATOR WITHIN REACH, TPM WIRES SECURED TO CHEST, ALL DRESSING SITES CDI, ASSISTED UP TO CHAIR FOR BREAKFAST DENIES ALL NEEDS, WILL CONTINUE TO MONITOR
--- NOTE | 2017-03-24 09:00 | NUR ---
ALL DRESSINGS CHANGED, PT TOLERATED BREAKFAST WELL, HAD LIQUID BM IN CHAIR AND ATTEMPTED TO TRANSFER SELF TO BATHROOM, ASSSITED TO BATHROOM AND ENCOURAGED TO USE CALL LIGHT PT HAS SO MANY WIRES ATTACHED, WALKED WITH PT, IN AFIB, SEEN BY DR ESCOBAR WITH ORDERS FOR CORDARONE BOLUS AND REPEAT IN 30MIN IF NEEDED (SEE ORDER) DENIES ALL PAIN, BATH COMPLETE AND TOTAL LINEN CHANGE, WILL CONTINUE TO MONITOR
--- NOTE | 2017-03-24 09:48 | NUR ---
PT IN FIB/FLUTTER, CORDARONE BOLUS REPEATED
--- NOTE | 2017-03-24 10:54 | NUR ---
HR IN 80S, CONTIN UES IN AFLUTTER
--- NOTE | 2017-03-24 11:30 | NUR ---
SPOKE WITH DR ORDONEZ NURSE BRENDON TO INFORM HR IN 120S, AFLUTTER/FIB
--- NOTE | 2017-03-24 13:02 | NUR ---
PT HAD ANOTHER LOOSE STOOL, TOLERATED REGULAR LUNCH TRAY, HR 86 AFLUTTER, DENIES ALL NEEDS, WILL CONTINUE TO MONITOR
--- NOTE | 2017-03-24 14:58 | NUR ---
PT UP WALKING WITH PT, HAD ANOTHER BM, VSS, DENIES ALL NEEDS, WILL CONTINUE TO MONITOR
--- NOTE | 2017-03-24 17:00 | NUR ---
PT FED SELF DINNER TOLERATED WELL VSS DENIES PAIN, CONTINUES IN NSR RATE 80S, WILL CONTINUE TO MONITOR
--- NOTE | 2017-03-24 19:00 | NUR ---
REPORT RECEIVED AND ASSESSMENT COMPLETD. SEE FLOWSHEET FOR FULL DETAILS. SINCE LAST CARE, PT IS NOW ONLY ON A CORDARONE DRIP. REGLAN HAS BEEN DISCONTINUED WELL. WILL MONITOR THROUGHOUT SHIFT
--- NOTE | 2017-03-24 21:00 | NUR ---
2100 MEDS PROVIDED. EDUCATED PATIENT ON NEW MEDS. WILL CONTINUE TO MONITOR
--- NOTE | 2017-03-24 23:00 | NUR ---
REASSESSMENT COMPLETED SEE FLOWSHEET FOR FULL DETAILS. PT RESTING IN BED. NO OTHER CHANGES IN STATUS AT THIS TIME. WILL CONTINUE TO MONITOR
[2017-03-25] VITALS (21 sets, daily range): BP systolic 105–162; BP diastolic 61–97
--- NOTE | 2017-03-25 01:00 | NUR ---
NO CHANGES IN STATUS AT THIS TIME WILL CONTINUE TO MONITOR
--- NOTE | 2017-03-25 03:00 | NUR ---
REASSESSMENT COMPLETED. SEE FLOWSHEET FOR FULL DETAILS. ASSISTED PT TO RESTROOM AT THIS TIME. NO OTHER CHANGES NOTED. WILL CONTINUE TO MONITOR
[2017-03-25 08:52] LABS: HEMATOCRIT 37.4 % (42.0-54.0); HEMOGLOBIN 12.3 g/dL (13.5-17.5); MCH 31.1 pg (26.0-34.0); MCHC 32.9 g/dL (31.0-37.0); MCV 94.7 fL (80.0-100.0); MEAN PLATELET VOLUME 10.6 fL (7.4-10.4); RBC 3.95 10x6/uL (4.20-6.10); RDW 13.6 % (11.5-14.5); WBC 13.9 10x3/uL (4.8-10.8)
[2017-03-25 09:01] LABS: ANION GAP 13.8 mmol/L (8-16); CALCIUM 8.9 mg/dL (8.5-10.1); CARBON DIOXIDE 25.6 mmol/L (21.0-32.0); CREATININE - SERUM 1.3 mg/dL (0.6-1.3); POTASSIUM - SERUM 3.4 mmol/L (3.5-5.1)
--- NOTE | 2017-03-25 09:30 | NUR ---
Patient Name: KATELYNN BALDWIN Encounter No: [id number] : 1955 Primary Insurance: [employer] Anticipated DC Date: 03-25-2017 Planned Disposition: Home DCP follow-up note: Anticipate DC soon. Patient and family in agreement with discharge plan. No changes to plan. Case management will follow and assist as needed. Amarilis Roberts
--- NOTE | 2017-03-25 11:00 | NUR ---
CORDARONE DC'D. O2 DECREASED TO 2.5 LPM
--- NOTE | 2017-03-25 12:18 | NUR ---
Nutrition Follow Up: Pt stated that he tolerated his breakfast tray with no problems. He denied any nausea, etc. +BM 03/24/17. Wt loss 6# since admit. Labs reviewed. Meds noted including Lasix. Rec continue current diet as tolerated. RD following.
--- NOTE | 2017-03-25 14:00 | NUR ---
CENTRAL LINE DC'D.
--- NOTE | 2017-03-25 16:07 | NUR ---
BRENDON RN IN ROOM, PULLED PACEMAKER WIRES AND BIB FROM R LEG INCISION. PATIENT TOLERATED WELL, AND DENIES ANY NEEDS AT THIS TIME. CALL LIGHT WITHIN REACH, BED IN LOW POSITION, AT BEDSIDE.
[2017-03-25] MEDS ORDERED: CORDARONE200 MG PO (16:15)
[2017-03-25] MEDS ORDERED: ASPIRIN81 MG PO (16:16)
[2017-03-25] MEDS ORDERED: LASIX40 MG PO (16:17)
[2017-03-25] MEDS ORDERED: SENOKOT-S TABLE1 TAB PO (16:18)
[2017-03-25] MEDS ORDERED: COLACE100 MG PO (16:19)
[2017-03-25] MEDS ORDERED: HYDROCODONE-APA1 TAB PO (16:20)
[2017-03-25] MEDS ORDERED: K-DUR20 MEQ PO (16:23)
--- NOTE | 2017-03-25 19:15 | NUR ---
RECEIVED CARE OF PT, ASSESSMENT PER FLOWSHEET. PT AND [id number] IN ROOM, PT VISITING EASILY IN NO APPARENT DISTRESS, HR SR ON CM WITH PAC'S NOTED, BREATH SOUNDS DIM IN BASES, ON ROOM AIR, SKIN ASSESSMENT PER FLOWSHEET, ALL INCISIONS WITH WOUND EDGES WELL APPROXIMATED, PLASMA CENTER NURSE, NO S/S OF INFECTION NOTED, PPP, PT DENIES ANY NEEDS, VSS, BED LOW, CALL LIGHT IN REACH.
--- NOTE | 2017-03-25 20:40 | NUR ---
ASSISTED PT TO RESTROOM, PASSED LIQUID STOOL, BACK TO BED, MINIMAL SOB, NOTED TO BE IN ATRIAL FIB ON MONITOR.
--- NOTE | 2017-03-25 21:02 | NUR ---
DR ESCOBAR NOTIFIED OF CHANGE IN PT RHYTHM, ORDERS RECEIVED.
--- NOTE | 2017-03-25 21:15 | NUR ---
PT SELF CONVERTED BACK TO SR IN THE 80'S, ALL OTHER VSS.
--- NOTE | 2017-03-25 23:50 | NUR ---
PT RESTING IN BED WITH EYES CLOSED, ABLE TO REPOSITION SELF INDEPENDENTLY, VSS, CONT TO MONITOR.
[2017-03-26] VITALS (11 sets, daily range): BP systolic 98–138; BP diastolic 59–78
--- NOTE | 2017-03-26 01:04 | NUR ---
PT RESTING IN BED WITH EYES CLOSED, HOME CPAP ON, VSS, SR ON CM, CONT TO MONITOR.
--- NOTE | 2017-03-26 03:27 | NUR ---
ASSISTED PT TO BR, VOIDED, PROVIDED OWN PERICARE, BACK TO BED WITHOUT INCIDENT, POSITIONED SELF, BACK ON HOME CPAP. VSS
--- NOTE | 2017-03-26 04:00 | NUR ---
BACK FROM RADIOLOGY VIA W/C FOR AM PA AND LAT CXR, PT TOLERATED WELL, BACK TO BED WITHOUT INCIDENT, HOME CPAP PLACED BACK ON PER PT REQUEST, VSS.
--- NOTE | 2017-03-26 05:27 | NUR ---
PT RESTING IN BED WITH EYES CLOSED, HOME CPAP IN PLACE, NO VISITORS PRESENT AT THIS TIME, HR 77 ON CM WITH OCC PAC'S NOTED, CONT POC.
[2017-03-26 06:34] LABS: HEMATOCRIT 35.1 % (42.0-54.0); HEMOGLOBIN 11.4 g/dL (13.5-17.5); MCH 30.6 pg (26.0-34.0); MCHC 32.5 g/dL (31.0-37.0); MCV 94.1 fL (80.0-100.0); MEAN PLATELET VOLUME 10.3 fL (7.4-10.4); RBC 3.73 10x6/uL (4.20-6.10); RDW 13.7 % (11.5-14.5); WBC 10.8 10x3/uL (4.8-10.8)
[2017-03-26 06:50] LABS: ANION GAP 11.5 mmol/L (8-16); CALCIUM 8.3 mg/dL (8.5-10.1); CARBON DIOXIDE 28.4 mmol/L (21.0-32.0); CREATININE - SERUM 1.2 mg/dL (0.6-1.3); POTASSIUM - SERUM 3.9 mmol/L (3.5-5.1)
--- NOTE | 2017-03-26 12:35 | NUR ---
DISCHARGED HOME WITH . TO CAR VIA WHEELCHAIR WITH ALL BELONGINGS AND DISCHARGE INSTRUCTIONS.
--- NOTE | 2017-03-29 09:40 | CN ---
PATIENT NAME:KATELYNN BALDWIN MEDICAL RECORD: [id number] : 53 LOCATION:[facility] ADMIT DATE: 03/18/17 ACCOUNT: [id number] CONSULTING PHYSICIAN: JAZZMINE MARADIAGA MD REFERRING PHYSICIAN: NIRU ESCOBAR MD DATE OF CONSULTATION: 03/22/2017 This is a consultation note addendum. CHIEF COMPLAINT: Nausea and vomiting. HISTORY OF PRESENT ILLNESS: The patient recently underwent heart surgery. The patient developed abdominal distention as well as nausea and vomiting. This is most consistent with an ileus; however, it could represent a small-bowel obstruction. Symptoms came on gradually. They are somewhat improved now and the nasogastric tube has been placed. The patient has diffuse abdominal pain. Palpation aggravates. Nothing alleviates. This is a consultation note addendum. For the typed portion of the consult note, please see the chart. This will include the past medical and surgical history, current medications, allergies, social history as well as family history. REVIEW OF SYSTEMS: Positive for nausea currently without vomiting. No fever, no chills. He is having some incisional chest pain. No shortness of breath. Review of systems is negative other than as is described above. PHYSICAL EXAMINATION: GENERAL: The patient does not appear acutely ill. He does not appear chronically ill. VITAL SIGNS: Reviewed. EARS: External ears appear normal. EYES: Extraocular movements are intact. NECK: Trachea is midline. CHEST: No intercostal retractions. PULMONARY: Nonlabored, no stridor. ABDOMEN: Distended. PSYCHIATRIC: Normal affect. NEUROLOGIC: Nonfocal, no lethargy. The patient answers questions appropriately, moves all extremities well. BACK: No thoracic kyphosis. LYMPHATICS: No lymphangitic streaking of the exposed extremities. IMPRESSION: Abdominal distention with nausea and vomiting, likely an ileus; however, this could represent small-bowel obstruction. PLAN: I have encouraged the patient to ambulate. I will also obtain a small bowel follow through utilizing Gastrografin through the patient's nasogastric tube. This may be diagnostic as well as therapeutic. TRANSINT:[id number] Voice Confirmation ID: [id number] DOCUMENT ID: [id number] CONSULT REPORT [id number] KATELYNN BALDWIN ROBERT MD at 0940 CC: NIRU ESCOBAR MD [id number] DICTATION DATE: 03/22/17 1320 SUPERVISOR HARVESTING: 03/22/17 1348 DIS IN 03/26/17 [facility] [address] [place] [address]
--- NOTE | 2017-03-29 09:40 | PN ---
PATIENT:KATELYNN BALDWIN MEDICAL RECORD: [id number] LOCATION:[facility] ADMISSION DATE: 03/18/17 PROGRESS NOTE DATE OF SERVICE: 03/23/2017 ADDENDUM For the typed portion of the progress note, please see the chart. CHIEF COMPLAINT: Better. The patient has been having liquid stools. I have reviewed the small bowel follow through report. I think that the small bowel follow through was diagnostic as well as therapeutic. He is having some right lower quadrant tenderness with guarding. I am uncertain why he would be having that. There is no peritonitis to percussion. I am going to discontinue his nasogastric tube. I am going to start him on a clear liquid diet. Palpation aggravates. Nothing alleviates. Symptoms are mild in intensity. This is a progress note addendum. For the typed portion of the progress note, please see the chart. This would include the past medical and surgical history, allergies, social history, family history as well as current medications. REVIEW OF SYSTEMS: No nausea, no vomiting, no fever, no chills. Positive for incisional pain. Review of systems is negative other than as is described above. PHYSICAL EXAMINATION: GENERAL: The patient does not appear acutely ill. He does not appear chronically ill. VITAL SIGNS: Reviewed. HEAD: External ears appear normal. Eyes: Extraocular movements are intact. NECK: Trachea is midline. CHEST: No intercostal retractions. PULMONARY: Mildly labored. No stridor. ABDOMEN: Right lower quadrant tenderness with guarding. EXTREMITIES: No peripheral cyanosis. INTEGUMENT: No rash. PSYCHIATRIC: Normal affect. NEUROLOGIC: Nonfocal, no lethargy. The patient answers questions appropriately. BACK: No thoracic kyphosis. LYMPHATIC: No lymphangitic streaking of the exposed extremities. IMPRESSION: Resolving ileus. PLAN: As described above. TRANSINT:[id number] Voice Confirmation ID: [id number] DOCUMENT ID: [id number] PROGRESS NOTE [id number] DENNYKATELYNNJAZZMINE JACKSON MD at 0940 CC: [id number] DICTATION DATE: 03/23/17 1043 FLIGHT ATTENDANT RAMP: 03/23/17 1218 DIS IN 03/26/17 [place] [id number] [place] [address]
--- NOTE | 2017-03-29 09:40 | PN ---
PATIENT:KATELYNN BALDWIN MEDICAL RECORD: [id number] LOCATION:[facility].CV0 ADMISSION DATE: 03/18/17 PROGRESS NOTE DATE OF SERVICE: 03/24/2017 CHIEF COMPLAINT: Better. The patient states he is very thankful for the care that he received from me. He is tolerating a regular diet. His abdomen is not distended. The right lower quadrant pain and tenderness that he was having has almost gone. He is having bowel function. Nothing aggravates. Nothing alleviates. I will sign off. I will see him on a p.r.n. basis. There is no need for him to follow up with me in the office after he is dismissed home. This a progress note addendum. For the typed portion of the progress note, please see the chart. This would include the past medical and surgical history, current medications, allergies, social history, as well as family history. REVIEW OF SYSTEMS: No nausea, no vomiting, no fever, no chills, no chest pain, no shortness of breath. He is having some incisional chest pain, however. No back pain. PHYSICAL EXAMINATION: GENERAL: The patient does not appear acutely ill. He does not appear chronically ill. VITAL SIGNS: Reviewed. EARS: External ears appear normal. EYES: Extraocular movements are intact. NECK: Trachea is midline. CHEST: No intercostal retractions. PULMONARY: Nonlabored, no stridor. ABDOMEN: No peritonitis with movement, nontender. EXTREMITIES: No peripheral cyanosis. INTEGUMENT: No rash, no ulcerations. PSYCHIATRIC: Normal affect. NEUROLOGIC: He is a little hard of hearing today. Otherwise, he moves all extremities well. BACK: No thoracic kyphosis. LYMPHATIC: No lymphangitic streaking of the exposed extremities. IMPRESSION: Resolved ileus. PLAN: Continue regular diet. I will see the patient on a p.r.n. basis. He has been placed on Metamucil and I certainly agree with this. TRANSINT:[id number] Voice Confirmation ID: [id number] DOCUMENT ID: [id number] PROGRESS NOTE [id number] DENNYKATELYNN ROSA JAZZMINE MARADIAGA MD at 0940 CC: [id number] DICTATION DATE: 03/25/17 0845 CELLARS SUPERVISOR: 03/25/17 0952 DIS IN 03/26/17 [facility] [address] [place] [address]
--- NOTE | 2017-04-01 14:14 | TEE ---
PATIENT:KATELYNN BALDWIN MEDICAL RECORD: [id number] LOCATION:[place] [address] AGE OF PATIENT: 62 ADMISSION DATE: 03/18/17 SEX: M REFERRING PHYSICIAN: INTERPRETING PHYSICIAN: DENNY MONZON MD TRANSESOPHAGEAL ECHOCARDIOGRAM JUAN CHARGE Y INDICATIONS: CABG PREMEDICATIONS: PATIENT'S RESPONSE PROCEDURE DOPPLER MEASUREMENTS: LVIT LA PA RA LVOT RVOT Asc. Ao AV Gradient Peak AV Mean AV Area MV Gradient Peak MV Mean MV Area INTERPRETATION: Doppler: 2-D: EF 45% COLOR FLOW DOPPLER TRACE / MILD MITRAL REGURG NORMAL SALINE STUDY: MISCELLANOUS: DIAGNOSIS: PLAN: Case Maker:2 Dr. Arias Rn Anesthetist: oNhemi MARQUEZ COMMENTS: SHAWN PATIENT DATE OF SERVICE: 03/18/2017 PROCEDURE: Transesophageal echo evaluation of valvular structures during bypass surgery. FINDINGS: 1. Left ventricular chamber size is within normal limits. Left ventricular systolic function is lower limits of normal. Overall ejection fraction is 45% to 50%. TRANSESOPHAGEAL ECHOCARDIOGRAM REPORT [id number] SWAPNA BALDWIN 2. Left atrium, right atrium, and right ventricular chamber sizes are within normal limits. 3. Valvular structures have normal structure and motion. 4. Doppler interrogation reveals trace mitral regurgitation, trace tricuspid regurgitation. No other valvular insufficiency or stenosis. 5. No evidence of pericardial effusion or left ventricular thrombus. TRANSINT:[id number] Voice Confirmation ID: [id number] DOCUMENT ID: [id number] at 1414 CC: [id number] DICTATION DATE: 03/21/17 1026 PHOTOGRAPH DEVELOPER: 03/21/17 1143 DIS IN 03/26/[address] [address]
== END 2017-03-26 12:35 | disposition home or self-care (01) | DRG 236 ==
LOC: D.CVICU 05:00 → D.SDCHOLD 05:00 → D.CVICU 12:13
PROVIDERS: ADMIT Internal Medicine Cardiovascular Disease
PROC: 021109W Bypass Coronary Artery, Two Arteries from Aorta with Autologous Venous Tissue, Open Approach (ICD-10-PCS; 2017-03-18)
PROC: 06BP0ZZ Excision of Right Saphenous Vein, Open Approach (ICD-10-PCS; 2017-03-18)
PROC: 5A1221Z Performance of Cardiac Output, Continuous (ICD-10-PCS; 2017-03-18)
PROC: B245ZZ4 Ultrasonography of Left Heart, Transesophageal (ICD-10-PCS; 2017-03-18)
PROC: 02100AC Bypass Coronary Artery, One Artery from Thoracic Artery with Autologous Arterial Tissue, Open Approach (ICD-10-PCS; principal; 2017-03-18 07:30)
DX: I25.119 Atherosclerotic heart disease of native coronary artery with unspecified angina pectoris (principal); K56.7 Ileus, unspecified; I95.81 Postprocedural hypotension; E78.5 Hyperlipidemia, unspecified; E66.9 Obesity, unspecified; Z68.39 Body mass index [BMI] 39.0-39.9, adult; I10 Essential (primary) hypertension; Z87.891 Personal history of nicotine dependence

== ENCOUNTER → 2017-04-15 09:12 | Outpatient (CLI) | payer BC ==
[2017-03-21 10:45] VITALS: BMI 39.7
[~2017-04-15 09:12] MED LIST changes: +ASPIRIN81 MG PO; +COLACE100 MG PO; +CORDARONE200 MG PO; +HYDROCODONE-APA1 TAB PO; +K-DUR20 MEQ PO; +LASIX40 MG PO; +SENOKOT-S TABLE1 TAB PO
[2017-04-15 09:31] LABS: HEMOGLOBIN 14.4 g/dL (13.5-17.5); MCH 30.1 pg (26.0-34.0); MCHC 32.7 g/dL (31.0-37.0); MCV 92.1 fL (80.0-100.0); MEAN PLATELET VOLUME 9.3 fL (7.4-10.4); RBC 4.78 10x6/uL (4.20-6.10); RDW 13.7 % (11.5-14.5); WBC 7.4 10x3/uL (4.8-10.8)
[2017-04-15 10:01] LABS: ALBUMIN 3.5 g/dL (3.4-5.0); ANION GAP 12.7 mmol/L (8-16); BILIRUBIN - TOTAL 0.45 mg/dL (0.2-1.3); CALCIUM 9.1 mg/dL (8.5-10.1); CARBON DIOXIDE 25.4 mmol/L (21.0-32.0); CREATININE - SERUM 1.2 mg/dL (0.6-1.3); POTASSIUM - SERUM 4.1 mmol/L (3.5-5.1); PROTEIN - SERUM 7.1 g/dL (6.4-8.2)
== END | disposition home or self-care (01) ==
LOC: D.LAB 08:45 → D.RAD 09:00 → D.LAB 09:12
PROVIDERS: Internal Medicine Cardiovascular Disease
DX: J91.8 Pleural effusion in other conditions classified elsewhere (principal); D64.9 Anemia, unspecified

== ENCOUNTER → 2017-08-01 14:10 | Outpatient (CLI) | payer BC ==
[2017-03-21 10:45] VITALS: BMI 39.7
== END | disposition home or self-care (01) ==
LOC: D.RT 14:10
DX: R06.02 Shortness of breath (principal)

== ENCOUNTER → 2017-08-24 17:24 | Outpatient (CLI) | payer BC ==
[2017-03-21 10:45] VITALS: BMI 39.7
[2017-08-24 20:56] LABS: CHOL - HDL RATIO 5.8 ratio (2.3-4.9); LDL-HDL RATIO 4.1 ratio (1.5-3.5)
== END | disposition home or self-care (01) ==
LOC: D.LABREF 17:24
PROVIDERS: Nurse Practitioner
DX: I25.10 Atherosclerotic heart disease of native coronary artery without angina pectoris (principal)

== ENCOUNTER → 2019-01-22 09:24 | Outpatient (CLI) | payer BC ==
[2017-03-21 10:45] VITALS: BMI 39.7
--- NOTE | 2019-01-24 11:58 | EC ---
PATIENT:KATELYNN BALDWIN DATE OF SERVICE: 01/22/19 SEX: M MEDICAL RECORD: [id number] DATE OF : 53 [facility] AGE OF PATIENT: 63 ADMISSION DATE: 01/22/19 REFERRING PHYSICIAN: INTERPRETING PHYSICIAN: NASRA MERLOS MD ECHOCARDIOGRAM REPORT ECHO CHARGES 4 ECHO COMPLETE Date: 01/22/19 CLINICAL DIAGNOSIS: ASSESS EF/MITRAL REGURG HX CAD/CABG ECHOCARDIOGRAPHIC MEASUREMENTS (adult normal given) AC root (d.<3.7cm) 3.9 cm LV Septum d (<1.2 cm> 1.3 cm Valve Excursion 2.0 cm LV Septum (systole) 1.6 cm Left Atria (s.<4.0cm> 5.1 cm LVPW d(<1.2cm) 1.6 cm RV (d.<2.3cm) 4.5 cm LVPW (sytole) 1.8 cm LV diastole(<5.6CM) 5.9 cm MV E-F(>70mm/sec) cm LV systole 4.1 cm LVOT Diameter 1.9 cm MV exc.(>10mm) 2.6 cm Est.ejection fraction (50-75%) % DOPPLER: LVIT cm/sec A 70.0 cm/sec E 84.0 cm/sec LA cm/sec RVSP 25 mmHg LVOT 116 cm/sec AOP1/2T m/s Asc. Ao 150 cm/sec RVOT 73 cm/sec RA cm/sec PA 170 cm/sec AV Gradient Peak 9.00 mmHg AV Mean 4.87 mmHg AV Area 2.6 cm MV Gradient Peak 5.31 mmHg MV Mean 2.35 mmHg MV Area cm COMMENTS: Cut Out Stitcher: Nohemi MARQUEZ Metal Bending Machine Operator: 2 Dr. Arias TAPE# PACS Pericardial Effusion N DATE OF SERVICE: Adequate 2D, Color Flow Imaging, Spectral Doppler, and M-Mode LVH is present. LV internal dimension is normal. Wall motion is normal. EF is greater than or equal to 50% to 55%. Aortic valve sclerosis without stenosis by Doppler interrogation. Left atrium is dilated at 5.1 cm. Mitral valve shows no prolapse. Mild MR. Right-sided chambers are grossly normal. Trace TR. TRANSINT:[id number] Voice Confirmation ID: [id number] DOCUMENT ID: [id number] ECHOCARDIOGRAM REPORT [id number] KATELYNN BALDWIN,NASRA Domingo MD at 1158 CC: [id number] DICTATION DATE: 01/23/19 1327 MARKETING CAMPAIGN ANALYST: 01/23/192031 DEP CLI 01/22/19 [place] [id number] [place] [id number]
== END | disposition home or self-care (01) ==
LOC: D.HCCECHO 09:24 → D.HCCARDIO 09:30
PROVIDERS: ATTEND Internal Medicine Cardiovascular Disease
DX: I34.0 Nonrheumatic mitral (valve) insufficiency (principal)